=== PATIENT | female | born 1970 | race Caucasian/White ===

== ENCOUNTER → 2017-08-21 09:41 | Outpatient (CLI) | payer OTHER, SELFPAY ==
[2017-08-21 12:32] LABS: Anion Gap 8 (5-15); BUN 12 mg/dL (7-18); BUN/Creat Ratio 17.2 RATIO (10-20); Calcium,Total 8.5 mg/dL (8.5-10.1); Chloride 108 mmol/L (98-107); Cholesterol 180 mg/dL (200); EST Glomerular Filtration Rate 96 mL/min (>60); Est Glom Filt Rate - Afr Amer 117 mL/min (>60); Glucose 99 mg/dL (74-106); High Density Lipoprotein 47 mg/dL; Potassium 4.2 mmol/L (3.5-5.1); Sodium Level 140 mmol/L (136-145); Triglycerides 105 mg/dL; Very Low Density Lipoprotein 21 mg/dL (5-40)
== END ==
PROVIDERS: Family Provider Family Medicine; PCP Family Medicine; Visit Provider Family Medicine
DX: Z00.00 Encounter for general adult medical examination without abnormal findings (principal)
CPT/HCPCS: 36415; 80048; 80061

== ENCOUNTER 2018-07-24 10:17 | Emergency (ER) | payer OTHER, SELFPAY ==
[2018-07-24 10:18] VITALS: BP 128/69; PULSE 79; RESP 17; TEMP 36.7; O2SAT 100; BMI 25.2
--- NOTE | 2018-07-24 10:47 | VDLE_ITS ---
Reason For Study: PAIN RIGHT LEFT CFV is compressible, spontaneous, phasic, CFV is compressible, spontaneous, phasic, competent and demonstrates normal competent, and demonstrates normal augmentation. augmentation. Procedure FV is compressible, spontaneous, phasic, Exam performed portable in ED. competent and demonstrates normal A preliminary report was called and/or faxed augmentation. to ED. POP V is compressible, spontaneous, phasic, competent and demonstrates normal augmentation. T/P Trunk is compressible. PTV is compressible. LT PerV is compressible. Pt has had sclerotherapy on sections of the GSV. Where the GSV could be visualized is thick walled and compressible. Interpretation Summary Deep veins of the left lower extremity are patent and compressible segmentally. There is no evidence of left lower extremity deep vein thrombosis. Valvular competence appears intact within the proximal deep venous system on the left . Sections of the left great saphenous vein were not visualized, and other sections are patent and compressible, but thick-walled. Clinical correlation is advised. Ordering Physician: Nidia Pappas Referring Physician: KENDALL BRADFORD Performed By: Marie Mandel, VIDYACS, RVT
--- NOTE | 2018-07-24 10:54 | EKG12_ITS ---
Test Reason : BLOOD CLOT Blood Pressure : / mmHG Vent. Rate : 060 BPM Atrial Rate : 060 BPM P-R Int : 130 ms QRS Dur : 082 ms QT Int : 402 ms P-R-T Axes : 054 056 057 degrees QTc Int : 402 ms Normal sinus rhythm with sinus arrhythmia Normal ECG Confirmed by JEANINE FONTANEZ, ROBB ([id number]), editor managing director BROOKE FIGUEROA ([id number] on 07/26/2018 2:11:29 PM Referred By: Confirmed By:ROBB SOLORZANO MD
--- NOTE | 2018-07-24 10:54 | RAD_ITS ---
STUDY: X-RAY CHEST REASON FOR EXAM: Female, 48 years old. Chest pain. TECHNIQUE: Single AP portable view of the chest. COMPARISON: Prior comparison studies are not available for review at this time. FINDINGS: The lungs are clear and expanded. There is no demonstrated pleural abnormality. There is well-defined soft tissue density abutting the right cardiophrenic angle likely due to pericardial fat pad. Normal size heart. Normal mediastinum and brody. Normal visualized pulmonary arteries. Normal visualized aortic arch and descending thoracic aorta. Normal visualized thoracic spine. Normal visualized ribs, clavicles, and shoulders. There is no demonstrated abnormality of the visualized soft tissue structures of the upper abdomen. RAD/Chest 1 View (Portable) IMPRESSION: No active pulmonary disease. Electronically Signed: Ernesto Abrams MD at 11:40 EST Tel , Service support ,
--- NOTE | 2018-07-24 10:57 | ED.DCSUM_ITS ---
- ER Visit Summary Date of Service: 07/24/18 Chief Complaint: Left leg pain History of Present Illness: The patient is a 48 F presenting with left leg pain. Patient was seen by her primary care physician today and was sent to the ED due to concern for DVT. Patient has a history of previous DVT and factor V. She is not on anticoagulants. She has had chest pain which has been constant since yesterday. She complains of mild lightheadedness, no syncope. She denies shortness of breath. No recent travel or surgeries. She is not a smoker. No CAD risk factors. Physical Examination: Vitals are stable. Patient is afebrile. Alert no acute distress. HEENT exam is unremarkable. Neck is supple. Lungs are clear and equal bilaterally. Heart is regular rate and rhythm. Abdomen is soft nontender nondistended. Extremities left calf tenderness. No erythema or warmth. Normal distal pulses Skin is warm and dry. No focal neurologic deficit. Remainder of exam is unremarkable. Emergency Department Course and Treatment: Patient given aspirin on arrival. EKG is sinus rate of 60 with no acute ischemic changes. Chest x-ray shows no acute process. CBC, chemistries unremarkable. Troponin is negative. Ultrasound of the left lower extremity shows no evidence of DVT. CTA chest was obtained and shows no central or segmental pulmonary embolism. Hepatic cysts. 5.5 mm right middle lobe noncalcified nodule. No comparison studies are available. Left upper lobe granuloma. Delta troponin is negative. Patient is advised to follow-up with her primary care physician for these findings. Advised return to ED for worsening complaints. Disposition: Discharge home Impression: Left lower extremity pain This note was generated with [employer] dictation software. It may contain incorrect words, spelling, and punctuation that were not noted in review of the chart prior to signing ED Disposition - Plan for ED Patient: Referrals: Hugo Marx MD [Primary Care Provider] -
[2018-07-24] MEDS: Aspirin 81 MG TAB.CHEW 324 MG PO (11:06)
[2018-07-24 11:16] VITALS: O2SAT 99
[2018-07-24 11:26] LABS: Absolute Lymphocyte Count 1.34 X10^3/ul (0.83-4.51); Absolute Neutrophil Count 4.1 X10^3/uL (2.0-7.7); Basophil# 0.02 X10^3/uL; Basophil% 0.3 % (0-1); Eosinophil# 0.11 X10^3/uL; Eosinophils% 1.8 % (0-5); Hematocrit 40.3 % (37-47); Hemoglobin 13.6 g/dl (12.0-15.0); Lymphocyte # 1.34 X10^3/ul (4.0); Lymphocyte % 22.4 % (19-41); Mean Corp Hgb Conc 33.7 g/gl (32-36); Mean Corpuscular Hgb 29.5 pg (27.0-32.0); Mean Corpuscular Volume 87.4 fL (81-99); Mean Platelet Vol. 11.2 fl (6.2-12.0); Monocyte# 0.37 X10^3/uL; Monocyte% 6.2 % (0-10); Neutrophil # 4.14 X10^3/uL (2.7-7.7); Neutrophil % 69.1 % (47-70); Platelet Count 219 K/mm3 (150-450); RBC Distribution Width CV 12.9 % (11.6-14.6); RBC Distribution Width SD 40.1 fl (35.1-43.9); Red Blood Count 4.61 M/mm3 (4.2-5.4)
[2018-07-24 11:27] LABS: POSITIVE COUNT NO; POSITIVE DIFFERENTIAL NO; POSITIVE MORPHOLOGY NO
[2018-07-24 11:47] LABS: Anion Gap 5 (5-15); BUN 13 mg/dL (7-18); BUN/Creat Ratio 24.4 RATIO (10-20); Calcium,Total 9.4 mg/dL (8.5-10.1); Chloride 108 mmol/L (98-107); Creatinine, Serum 0.53 mg/dL (0.55-1.02); EST Glomerular Filtration Rate 131 mL/min (>60); Est Glom Filt Rate - Afr Amer 158 mL/min (>60); Estimated Creatinine Clearance 132.37 ml/min; Glucose 94 mg/dL (74-106); Potassium 4.1 mmol/L (3.5-5.1); Sodium Level 141 mmol/L (136-145)
[2018-07-24 12:26] VITALS: BP 115/79; PULSE 58; RESP 17; O2SAT 98
--- NOTE | 2018-07-24 13:29 | CT_ITS ---
STUDY: CTA CHEST REASON FOR EXAM: Female, 48 years old. 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 Post-processing of the angiographic images was performed, with multiplanar reformation and 3D reconstruction. Individualized dose optimization techniques were used for this CT. COMPARISON: None. FINDINGS: Normal enhancement of the main pulmonary artery and right and left pulmonary arteries. Normal enhancement of the bilateral peripheral pulmonary arteries. There is no demonstrated pulmonary embolism. Normal thoracic aorta and visualized great vessels. There is no demonstrated aortic dissection. Normal heart and pericardium. Normal mediastinum. Normal hilar regions. Normal visualized trachea and bronchi. The lungs are well expanded. Calcified granuloma left upper lobe is demonstrated. Noncalcified nodule in the right middle lobe on axial image 114 measures 5.5 mm. There is mild mosaic attenuation in the lung bases most typical of air trapping or subsegmental atelectasis. Normal pleura. Normal chest wall structures. Normal osseous structures. There are multiple simple hepatic cysts. CT/CTA Chest W/WO Contrast IMPRESSION: 1. No central or segmental pulmonary embolism. 2. Hepatic cysts. 3. 5.5 mm right middle lobe noncalcified nodule. No comparison studies are available. 4. Left upper lobe granuloma. Electronically Signed: Errol Moody MD at 14:33 EST , Service support ,
[2018-07-24 14:03] VITALS: BP 115/79; PULSE 76; RESP 14; O2SAT 99
[2018-07-24] MEDS: 0.9% Normal Saline 1,000 ML 999 ML IV (14:12)
--- NOTE | 2018-07-24 14:48 | ED.DEP ---
ED Disposition - Plan for ED Patient: Instructions: ED Muscle Pain Leg Cramps Prescriptions: Naproxen [Naprosyn] 500 mg PO BID PRN #20 tablet Referrals: Hugo Marx MD [Primary Care Provider] -
== END 2018-07-24 15:20 | disposition home or self-care (01) ==
LOC: ED 10:56
PROVIDERS: Emergency Provider Emergency Medicine; Family Provider Family Medicine; PCP Family Medicine
DX: M79.605 Pain in left leg (principal); R07.9 Chest pain, unspecified; Z79.899 Other long term (current) drug therapy; Z86.718 Personal history of other venous thrombosis and embolism
CPT/HCPCS: 71045; 71275; 80048; 84484; 85025; 93005; 93971; 96360; 99285; J7030; Q9967; A4216

== ENCOUNTER → 2018-09-22 | Outpatient (CLI) | payer OTHER, SELFPAY ==
[2018-09-22 10:40] LABS: Thyroid Stim Hormone (TSH) < 0.01 uIU/mL (0.358-3.74)
[2018-09-22 14:33] LABS: Free T3 3.8 pg/mL (2.18-3.98)
== END | disposition home or self-care (01) ==
PROVIDERS: Family Provider Family Medicine; PCP Family Medicine; Referring Provider Family Medicine; Visit Provider Nurse Practitioner Family
DX: R53.83 Other fatigue (principal)
CPT/HCPCS: 36415; 84439; 84443; 84481

== ENCOUNTER → 2018-09-24 | Outpatient (CLI) | payer OTHER, SELFPAY ==
--- NOTE | 2018-09-24 15:09 | US_ITS ---
HISTORY: HYPERTHYROIDISM EXAMINATION: US Thyroid (eg thyroid, parathyroid, parotid) TECHNIQUE: Hector scale and color doppler imaging was performed of the thyroid gland. COMPARISON: CT chest 09/23/18 FINDINGS: RIGHT THYROID LOBE: 5.5 x 1.5 x 2.0 cm. Homogeneous echotexture with normal vascularity. Nodule 1: 1.6 x 1.3 x 1.2 cm. Lower pole, complex mixed cystic and solid with peripheral vascularity. Regular margins. Nodule 2: 0.7 x 0.7 x 0.5 cm, upper pole, complex mixed cystic and solid with peripheral vascularity. Regular margins. LEFT THYROID LOBE: 5.1 x 1.5 x 1.5 cm. Homogeneous echotexture with normal vascularity. Nodule 1: 1.0 x 1.1 x 0.8 cm. Mid pole. Solid and mildly hypoechoic with internal and peripheral vascularity. Regular margins. Nodule 2: 2.1 x 1.7 x 1.4 cm. Lower pole. Isoechoic to thyroid parenchyma with peripheral and internal vascularity. Regular margins. Color than wide. Other small simple cystic appearing nodules were not measured. ISTHMUS: 0.2 cm thick. No Isthmus nodules are present. US/Thyroid IMPRESSION: Multinodular thyroid. The larger left lower pole nodule has high suspicion pattern. The small left lower pole nodule has intermediate suspicion pattern. Consider biopsy. The right-sided nodules have low suspicion pattern. at 0359 Reported and signed by: Natan Gandhi MD Electronically Signed: Natan Gandhi, at 3:58 EDT Tel , Service support ,
== END | disposition home or self-care (01) ==
LOC: US 15:04
PROVIDERS: Family Provider Family Medicine; PCP Family Medicine; Referring Provider Family Medicine; Visit Provider Family Medicine
DX: E05.90 Thyrotoxicosis, unspecified without thyrotoxic crisis or storm (principal)
CPT/HCPCS: 76536

== ENCOUNTER → 2018-10-11 | Outpatient (CLI) | payer OTHER, SELFPAY ==
--- NOTE | 2018-10-11 08:00 | NM_ITS ---
CLINICAL: 48-year-old female with reported history of thyroid nodularity. I-123 THYROID UPTAKE and SCAN COMPARISON: Thyroid ultrasound report 09/24/2018 FINDINGS: The patient was administered a 303 uCi I-123 capsule by mouth. The 4-hour I-123 radioactive iodine thyroidal uptake was calculated to be 16.5 % (normal 5 to 25 %). The 24-hour I-123 radioactive iodine thyroidal uptake was calculated to be 33.4 % (normal 5 to 40 %). The I-123 thyroid scan demonstrates increased radiopharmaceutical concentration identified in the inferior pole of the left lobe thyroid colloid. There is markedly reduced tracer distribution defined in the superior pole of the left and right superior-inferior pole thyroid parenchyma. NM/Thyroid Uptake Single or Mult IMPRESSION: 1. NORMAL 4- and 24-hour I-123 radioactive iodine thyroidal uptakes. 2. 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 Correlation with in vitro thyroid function studies is recommended if not previously obtained. Electronically Signed: Denis Garcia DO at 23:17 EDT Tel , Service support ,
== END | disposition home or self-care (01) ==
LOC: NM 07:58
PROVIDERS: Family Provider Family Medicine; PCP Family Medicine; Referring Provider Family Medicine; Visit Provider Family Medicine
DX: E03.9 Hypothyroidism, unspecified (principal)
CPT/HCPCS: 78012; A9516

== ENCOUNTER → 2019-02-02 | Outpatient (CLI) | payer OTHER, SELFPAY ==
[2019-02-02 18:08] LABS: Free T3 3.3 pg/mL (2.18-3.98); T4 Free Direct 1.07 ng/dL (0.76-1.46); Thyroid Stim Hormone (TSH) < 0.01 uIU/mL (0.358-3.74)
== END | disposition home or self-care (01) ==
LOC: MFPLAB 16:40
PROVIDERS: Family Provider Family Medicine; PCP Family Medicine; Referring Provider Family Medicine; Visit Provider Family Medicine
DX: E05.20 Thyrotoxicosis with toxic multinodular goiter without thyrotoxic crisis or storm (principal)
CPT/HCPCS: 36415; 84439; 84443; 84481

== ENCOUNTER → 2019-02-24 | Outpatient (CLI) | payer OTHER, SELFPAY ==
[2019-02-24 14:28] LABS: ALB/GLOB Ratio 1.3 RATIO (0.9-2.4); AST(SGOT) 13 U/L (15-37); Alanine Aminotransfer ALT/SGPT 20 U/L (13-56); Alkaline Phosphatase 102 U/L (45-117); Anion Gap 6 (5-15); BUN 13 mg/dL (7-18); Calcium,Total 9.1 mg/dL (8.5-10.1); Chloride 106 mmol/L (98-107); Creatinine, Serum 0.65 mg/dL (0.55-1.02); EST Glomerular Filtration Rate 103 mL/min (>60); Est Glom Filt Rate - Afr Amer 125 mL/min (>60); Free T3 2.9 pg/mL (2.18-3.98); Glucose 101 mg/dL (74-106); Sodium Level 140 mmol/L (136-145); Thyroid Stim Hormone (TSH) 0.01 uIU/mL (0.358-3.74)
== END | disposition home or self-care (01) ==
LOC: MFPLAB 11:39
PROVIDERS: Family Provider Family Medicine; PCP Family Medicine; Referring Provider Family Medicine; Visit Provider Internal Medicine Endocrinology, Diabetes & Metabolism
DX: E05.20 Thyrotoxicosis with toxic multinodular goiter without thyrotoxic crisis or storm (principal)
CPT/HCPCS: 36415; 80053; 84439; 84443; 84481

== ENCOUNTER → 2019-03-23 | Outpatient (CLI) | payer OTHER, SELFPAY ==
[2019-03-23 14:27] LABS: Free T3 2.7 pg/mL (2.18-3.98); T4 Free Direct 0.72 ng/dL (0.76-1.46); Thyroid Stim Hormone (TSH) 0.17 uIU/mL (0.358-3.74)
== END | disposition home or self-care (01) ==
LOC: MTLAB 12:26
PROVIDERS: Family Provider Family Medicine; PCP Family Medicine; Referring Provider Internal Medicine Endocrinology, Diabetes & Metabolism; Visit Provider Internal Medicine Endocrinology, Diabetes & Metabolism
DX: R94.6 Abnormal results of thyroid function studies (principal)
CPT/HCPCS: 36415; 84439; 84443; 84481

== ENCOUNTER → 2019-04-28 12:14 | Outpatient (CLI) | payer OTHER, SELFPAY ==
[2019-04-28 14:36] LABS: ALB/GLOB Ratio 1.3 RATIO (0.9-2.4); AST(SGOT) 18 U/L (15-37); Alanine Aminotransfer ALT/SGPT 26 U/L (13-56); Albumin, Serum 4.1 g/dL (3.2-5.0); Alkaline Phosphatase 90 U/L (45-117); Anion Gap 4 (5-15); BUN 14 mg/dL (7-18); BUN/Creat Ratio 19.8 RATIO (10-20); Calcium,Total 8.9 mg/dL (8.5-10.1); Chloride 106 mmol/L (98-107); Creatinine, Serum 0.71 mg/dL (0.55-1.02); EST Glomerular Filtration Rate 94 mL/min (>60); Est Glom Filt Rate - Afr Amer 114 mL/min (>60); Globulin 3.1 g/dL (2.2-4.2); Glucose 96 mg/dL (74-106); Potassium 4.2 mmol/L (3.5-5.1); Protein, Total 7.2 g/dL (6.4-8.2); Sodium Level 140 mmol/L (136-145); T4 Free Direct 0.82 ng/dL (0.76-1.46); Thyroid Stim Hormone (TSH) 0.24 uIU/mL (0.358-3.74)
== END ==
PROVIDERS: Family Provider Family Medicine; PCP Family Medicine; Referring Provider Internal Medicine Endocrinology, Diabetes & Metabolism; Visit Provider Internal Medicine Endocrinology, Diabetes & Metabolism
DX: R94.6 Abnormal results of thyroid function studies (principal)
CPT/HCPCS: 36415; 80053; 84439; 84443; 84481

== ENCOUNTER → 2019-06-13 10:24 | Outpatient (CLI) | payer OTHER, SELFPAY ==
[2019-06-13 12:26] LABS: Erythrocyte Sedimentation Rate 6 mm/hr (0-20)
[2019-06-13 13:00] LABS: Free T3 2.9 pg/mL (2.18-3.98); Magnesium 2.3 mg/dL (1.6-2.6); Rheumatoid Factor < 10.0 IU/mL (<15); T4 Free Direct 0.85 ng/dL (0.76-1.46); Vitamin D,25 Hydroxy 16.6 ng/mL (29.95-100.01)
== END ==
PROVIDERS: PCP Family Medicine; Visit Provider Internal Medicine Endocrinology, Diabetes & Metabolism
DX: E05.20 Thyrotoxicosis with toxic multinodular goiter without thyrotoxic crisis or storm (principal); E55.9 Vitamin D deficiency, unspecified; E83.42 Hypomagnesemia
CPT/HCPCS: 36415; 82306; 83735; 84439; 84443; 84481; 85652; 86431

== ENCOUNTER → 2019-08-12 | Outpatient (CLI) | payer OTHER, SELFPAY ==
[2019-08-12 17:49] LABS: Vitamin D,25 Hydroxy 41.4 ng/mL
[2019-08-12 17:56] LABS: ALB/GLOB Ratio 1.2 RATIO (0.9-2.4); AST(SGOT) 15 U/L (15-37); Alanine Aminotransfer ALT/SGPT 25 U/L (13-56); Albumin, Serum 3.8 g/dL (3.2-5.0); Alkaline Phosphatase 82 U/L (45-117); Anion Gap 7 (5-15); BUN 17 mg/dL (7-18); BUN/Creat Ratio 18.9 RATIO (10-20); Calcium,Total 8.8 mg/dL (8.5-10.1); Chloride 102 mmol/L (98-107); EST Glomerular Filtration Rate 71 mL/min (>60); Est Glom Filt Rate - Afr Amer 86 mL/min (>60); Free T3 2.8 pg/mL (2.18-3.98); Globulin 3.2 g/dL (2.2-4.2); Glucose 87 mg/dL (74-106); Potassium 4.1 mmol/L (3.5-5.1); Sodium Level 138 mmol/L (136-145); T4 Free Direct 0.85 ng/dL (0.76-1.46); Thyroid Stim Hormone (TSH) 0.31 uIU/mL (0.358-3.74)
== END | disposition home or self-care (01) ==
LOC: MTLAB 15:05
PROVIDERS: PCP Family Medicine; Referring Provider Internal Medicine Endocrinology, Diabetes & Metabolism; Visit Provider Internal Medicine Endocrinology, Diabetes & Metabolism
DX: E05.20 Thyrotoxicosis with toxic multinodular goiter without thyrotoxic crisis or storm (principal); E55.9 Vitamin D deficiency, unspecified
CPT/HCPCS: 36415; 80053; 82306; 84439; 84443; 84481

== ENCOUNTER → 2019-10-07 | Outpatient (CLI) | payer OTHER, SELFPAY ==
[2019-10-07 18:08] LABS: T4 Free Direct 0.91 ng/dL (0.76-1.46); Thyroid Stim Hormone (TSH) 0.38 uIU/mL (0.358-3.74)
== END | disposition home or self-care (01) ==
LOC: MTLAB 16:33
PROVIDERS: PCP Family Medicine; Referring Provider Internal Medicine Endocrinology, Diabetes & Metabolism; Visit Provider Internal Medicine Endocrinology, Diabetes & Metabolism
DX: E05.20 Thyrotoxicosis with toxic multinodular goiter without thyrotoxic crisis or storm (principal)
CPT/HCPCS: 36415; 84439; 84443; 84481

== ENCOUNTER → 2019-11-01 | Outpatient (CLI) | payer OTHER, SELFPAY ==
[2019-11-01 16:23] LABS: Internal QC Validated? YES +Cl - CLEAR BKGD; Pregnancy, Serum, hCG Quali. NEGATIVE Negative
== END | disposition home or self-care (01) ==
LOC: MFPLAB 09:24
PROVIDERS: PCP Family Medicine; Referring Provider Family Medicine; Visit Provider Internal Medicine Endocrinology, Diabetes & Metabolism
DX: E05.20 Thyrotoxicosis with toxic multinodular goiter without thyrotoxic crisis or storm (principal)
CPT/HCPCS: 36415; 84703

== ENCOUNTER → 2019-12-15 | Outpatient (CLI) | payer OTHER, SELFPAY ==
[2019-12-15 12:48] LABS: Free T3 2.5 pg/mL (2.18-3.98); T4 Free Direct 0.98 ng/dL (0.76-1.46); Thyroid Stim Hormone (TSH) 1.99 uIU/mL (0.358-3.74)
== END | disposition home or self-care (01) ==
LOC: MTLAB 10:24
PROVIDERS: PCP Family Medicine; Referring Provider Internal Medicine Endocrinology, Diabetes & Metabolism; Visit Provider Internal Medicine Endocrinology, Diabetes & Metabolism
DX: E05.20 Thyrotoxicosis with toxic multinodular goiter without thyrotoxic crisis or storm (principal)
CPT/HCPCS: 36415; 84439; 84443; 84481

== ENCOUNTER → 2020-01-26 | Outpatient (CLI) | payer OTHER, SELFPAY ==
[2020-01-26 15:37] LABS: Thyroid Stim Hormone (TSH) 3.92 uIU/mL (0.358-3.74)
== END | disposition home or self-care (01) ==
LOC: MTLAB 12:38
PROVIDERS: PCP Family Medicine; Referring Provider Internal Medicine Endocrinology, Diabetes & Metabolism; Visit Provider Internal Medicine Endocrinology, Diabetes & Metabolism
DX: E07.9 Disorder of thyroid, unspecified (principal)
CPT/HCPCS: 36415; 84443

== ENCOUNTER → 2020-03-09 | Outpatient (CLI) | payer OTHER, SELFPAY ==
[2020-03-09 11:03] LABS: ALB/GLOB Ratio 1.2 RATIO (0.9-2.4); AST(SGOT) 17 U/L (15-37); Alanine Aminotransfer ALT/SGPT 23 U/L (13-56); Albumin, Serum 3.8 g/dL (3.2-5.0); Alkaline Phosphatase 89 U/L (45-117); Anion Gap 5 (5-15); BUN 11 mg/dL (7-18); BUN/Creat Ratio 14.1 RATIO (10-20); Calcium,Total 8.9 mg/dL (8.5-10.1); Chloride 110 mmol/L (98-107); Creatinine, Serum 0.78 mg/dL (0.55-1.02); EST Glomerular Filtration Rate 83 mL/min (>60); Est Glom Filt Rate - Afr Amer 101 mL/min (>60); Globulin 3.3 g/dL (2.2-4.2); Glucose 95 mg/dL (74-106); Potassium 3.7 mmol/L (3.5-5.1); Protein, Total 7.1 g/dL (6.4-8.2); Sodium Level 140 mmol/L (136-145); Thyroid Stim Hormone (TSH) 1.48 uIU/mL (0.358-3.74)
== END | disposition home or self-care (01) ==
LOC: MTLAB 08:37
PROVIDERS: PCP Family Medicine; Referring Provider Internal Medicine Endocrinology, Diabetes & Metabolism; Visit Provider Internal Medicine Endocrinology, Diabetes & Metabolism
DX: E07.9 Disorder of thyroid, unspecified (principal)
CPT/HCPCS: 36415; 80053; 84443

== ENCOUNTER → 2020-07-13 10:29 | Outpatient (CLI) | payer OTHER, SELFPAY ==
[2020-07-13 17:07] LABS: ALB/GLOB Ratio 1.4 RATIO (0.9-2.4); AST(SGOT) 19 U/L (15-37); Alanine Aminotransfer ALT/SGPT 27 U/L (13-56); Albumin, Serum 4.2 g/dL (3.2-5.0); Alkaline Phosphatase 98 U/L (45-117); Anion Gap 4 (5-15); BUN 17 mg/dL (7-18); BUN/Creat Ratio 19.7 RATIO (10-20); Calcium,Total 9.4 mg/dL (8.5-10.1); Chloride 106 mmol/L (98-107); Cholesterol 256 mg/dL (200); Creatinine, Serum 0.86 mg/dL (0.55-1.02); EST Glomerular Filtration Rate 74 mL/min (>60); Est Glom Filt Rate - Afr Amer 90 mL/min (>60); Globulin 3.1 g/dL (2.2-4.2); Glucose 86 mg/dL (74-106); High Density Lipoprotein 67 mg/dL; Magnesium 2.4 mg/dL (1.6-2.6); Potassium 4.3 mmol/L (3.5-5.1); Protein, Total 7.3 g/dL (6.4-8.2); Sodium Level 140 mmol/L (136-145); Thyroid Stim Hormone (TSH) 1.76 uIU/mL (0.358-3.74); Triglycerides 122 mg/dL; Very Low Density Lipoprotein 24 mg/dL (5-40)
== END ==
PROVIDERS: PCP Family Medicine; Referring Provider Physician Assistant; Visit Provider Physician Assistant
DX: E89.0 Postprocedural hypothyroidism (principal); E78.00 Pure hypercholesterolemia, unspecified; E83.42 Hypomagnesemia
CPT/HCPCS: 36415; 80053; 80061; 83735; 84443

== ENCOUNTER → 2020-07-13 | Outpatient (CLI) | payer OTHER, SELFPAY ==
[2020-07-17 09:08] LABS: HSV 1 By PCR Positive (Negative)
[2020-07-17 15:21] LABS: HSV 2 By PCR Negative (Negative)
== END | disposition home or self-care (01) ==
LOC: LABSPEC 11:03
PROVIDERS: PCP Family Medicine; Visit Provider Obstetrics & Gynecology
DX: B00.2 Herpesviral gingivostomatitis and pharyngotonsillitis (principal)
CPT/HCPCS: 87529

== ENCOUNTER → 2020-11-12 08:23 | Outpatient (CLI) | payer OTHER, SELFPAY ==
[2020-11-12 10:31] LABS: Vitamin D,25 Hydroxy 50.4 ng/mL
[2020-11-12 11:11] LABS: ALB/GLOB Ratio 1.2 RATIO (0.9-2.4); AST(SGOT) 19 U/L (15-37); Alanine Aminotransfer ALT/SGPT 20 U/L (13-56); Albumin, Serum 3.7 g/dL (3.2-5.0); Alkaline Phosphatase 78 U/L (45-117); Anion Gap 8 (5-15); BUN 16 mg/dL (7-18); BUN/Creat Ratio 20.6 RATIO (10-20); Calcium,Total 8.5 mg/dL (8.5-10.1); Chloride 106 mmol/L (98-107); Cholesterol 202 mg/dL (200); Creatinine, Serum 0.78 mg/dL (0.55-1.02); EST Glomerular Filtration Rate 84 mL/min (>60); Est Glom Filt Rate - Afr Amer 101 mL/min (>60); Globulin 3.1 g/dL (2.2-4.2); Glucose 88 mg/dL (74-106); High Density Lipoprotein 60 mg/dL; Potassium 3.9 mmol/L (3.5-5.1); Protein, Total 6.8 g/dL (6.4-8.2); Sodium Level 141 mmol/L (136-145); Thyroid Stim Hormone (TSH) 1.78 uIU/mL (0.358-3.74); Triglycerides 58 mg/dL; Very Low Density Lipoprotein 12 mg/dL (5-40)
== END ==
PROVIDERS: PCP Family Medicine; Referring Provider Internal Medicine Endocrinology, Diabetes & Metabolism; Visit Provider Internal Medicine Endocrinology, Diabetes & Metabolism
DX: E89.0 Postprocedural hypothyroidism (principal); E78.00 Pure hypercholesterolemia, unspecified; E55.9 Vitamin D deficiency, unspecified
CPT/HCPCS: 36415; 80053; 80061; 82306; 84443

== ENCOUNTER → 2021-02-22 07:45 | Outpatient (CLI) | payer OTHER, SELFPAY ==
[2021-02-22 10:20] LABS: Vitamin D,25 Hydroxy 52.9 ng/mL
[2021-02-22 10:39] LABS: ALB/GLOB Ratio 1.1 RATIO (0.9-2.4); AST(SGOT) 15 U/L (15-37); Alanine Aminotransfer ALT/SGPT 27 U/L (13-56); Albumin, Serum 3.7 g/dL (3.2-5.0); Alkaline Phosphatase 91 U/L (45-117); Anion Gap 5 (5-15); BUN 16 mg/dL (7-18); BUN/Creat Ratio 23.9 RATIO (10-20); Calcium,Total 9.1 mg/dL (8.5-10.1); Chloride 104 mmol/L (98-107); Cholesterol 228 mg/dL (200); Creatinine, Serum 0.67 mg/dL (0.55-1.02); EST Glomerular Filtration Rate 99 mL/min (>60); Est Glom Filt Rate - Afr Amer 120 mL/min (>60); Free T3 4.3 pg/mL (2.18-3.98); Globulin 3.5 g/dL (2.2-4.2); Glucose 85 mg/dL (74-106); High Density Lipoprotein 68 mg/dL; Potassium 4.1 mmol/L (3.5-5.1); Protein, Total 7.2 g/dL (6.4-8.2); Sodium Level 140 mmol/L (136-145); Thyroid Stim Hormone (TSH) 3.53 uIU/mL (0.358-3.74); Triglycerides 85 mg/dL; Very Low Density Lipoprotein 17 mg/dL (5-40)
== END ==
PROVIDERS: PCP Family Medicine; Referring Provider Internal Medicine Endocrinology, Diabetes & Metabolism; Visit Provider Internal Medicine Endocrinology, Diabetes & Metabolism
DX: E89.0 Postprocedural hypothyroidism (principal); E78.00 Pure hypercholesterolemia, unspecified; E55.9 Vitamin D deficiency, unspecified
CPT/HCPCS: 36415; 80053; 80061; 82306; 84439; 84443; 84481

== ENCOUNTER → 2021-03-11 | Outpatient (CLI) | payer OTHER, SELFPAY ==
[2021-03-14 15:31] LABS: HPV APTIMA, High Risk Negative (Negative)
== END | disposition home or self-care (01) ==
LOC: LABSPEC 11:12
PROVIDERS: PCP Family Medicine; Visit Provider Student in an Organized Health Care Education/Training Program
DX: Z12.4 Encounter for screening for malignant neoplasm of cervix (principal)
CPT/HCPCS: 87624; 88175; G0145

== ENCOUNTER → 2021-04-01 | Outpatient (CLI) | payer OTHER, SELFPAY ==
--- NOTE | 2021-04-01 | EMB_PTH ---
PATIENT: DEMETRIA KHNA LOC: [facility] U#:[id number] AGE/SX: 50/F ROOM: RE04/01/[address]: Dr. Kelley Lei DO : 1970 BED: DIS: 04/01/2021 SPEC #: [id number] RECD: 04/01/21 11:28 STATUS: OCTAVIO REQ #: [id number] ISABELL: 04/01/21 00:[address]: Kelley Lei DEPT: SURGICAL PATHOLOGY RECD BY: Lionel Giron ENTERED: 04/01/21 13:32 SP TYPE: ENDOM BX/C SHANTELL DR: Dr. Hugo Marx MD Tissues: Endometrium, NOS Procedures: Surgery Specimen Level IV HEADER OPERATION: Endometrial biopsy PRE-OP DIAGNOSIS: Postmenopausal bleeding TISSUE SUBMITTED: Endometrial biopsy MICROSCOPIC DIAGNOSIS Endometrium, biopsy: Strips of benign superficial glandular mucosa. AM:suzanne 04/02/2021 MICROSCOPIC DESCRIPTION Slides are reviewed. GROSS DESCRIPTION Received in fixative is one container labeled with the patient's name and designated endometrial biopsy. The specimen consists of a scant amount of soft tissue. The specimen is totally submitted for cell block preparation. / suzanne 04/01/21 TC:5 CPT: 75352
== END | disposition home or self-care (01) ==
LOC: LABSPEC 11:24
PROVIDERS: PCP Family Medicine; Visit Provider Student in an Organized Health Care Education/Training Program
DX: N95.0 Postmenopausal bleeding (principal)
CPT/HCPCS: 88305

== ENCOUNTER → 2021-04-17 15:06 | Outpatient (CLI) | payer OTHER, SELFPAY ==
--- NOTE | 2021-04-17 15:08 | BI_ITS ---
MAMMOGRAPHY - BILATERAL SCREENING 3-D TOMOSYNTHESIS REASON FOR EXAM: Female, 50 years old. Routine screening PERTINENT HISTORY: No significant family history. TECHNIQUE: 2-D mammograms and 3-D Tomosynthesis of the breast (s) were performed. CAD was performed. COMPARISON: 2017 FINDINGS: The breast composition is composed of scattered fibroglandular density. Scattered benign calcifications are seen. No dense spiculated masses or suspicious microcalcifications are identified. No architectural distortion is identified. There is no skin thickening or retraction. There has been no significant change since the prior study. BI/SCRN MAMM (CAD)W/SHERWIN BILAT IMPRESSION: No mammographic signs of malignancy. Routine yearly mammograms recommended. ASSESSMENT CATEGORY: BIRADS Category 1: Negative. A letter regarding these results will be sent to the patient by the facility within 30 days. FOLLOW UP RECOMMENDATION: Yearly follow up mammogram recommended. (A) Approximately 10% of breast cancers are not detected by mammography. A normal mammogram should not delay biopsy of a clinically suspicious abnormality. Electronically Signed: Milton Man MD at 16:18 EST , Service support ,
== END ==
PROVIDERS: PCP Family Medicine; Referring Provider Student in an Organized Health Care Education/Training Program; Visit Provider Student in an Organized Health Care Education/Training Program
DX: Z12.31 Encounter for screening mammogram for malignant neoplasm of breast (principal)
CPT/HCPCS: 77063; 77067

== ENCOUNTER → 2021-04-26 07:32 | Outpatient (CLI) | payer OTHER, SELFPAY ==
[2021-04-26 10:28] LABS: Vitamin B12 753 pg/mL (211-911)
[2021-04-26 10:39] LABS: ALB/GLOB Ratio 1.1 RATIO (0.9-2.4); AST(SGOT) 17 U/L (15-37); Alanine Aminotransfer ALT/SGPT 27 U/L (13-56); Albumin, Serum 3.7 g/dL (3.2-5.0); Alkaline Phosphatase 84 U/L (45-117); Anion Gap 5 (5-15); BUN 17 mg/dL (7-18); BUN/Creat Ratio 23.8 RATIO (10-20); Chloride 106 mmol/L (98-107); Creatinine, Serum 0.71 mg/dL (0.55-1.02); EST Glomerular Filtration Rate 92 mL/min (>60); Est Glom Filt Rate - Afr Amer 111 mL/min (>60); Ferritin 115 ng/mL (8-252); Free T3 3.7 pg/mL (2.18-3.98); Globulin 3.5 g/dL (2.2-4.2); Glucose 90 mg/dL (74-106); Iron 77 ug/dL (50-170); Potassium 4.4 mmol/L (3.5-5.1); Protein, Total 7.2 g/dL (6.4-8.2); Sodium Level 141 mmol/L (136-145); T4 Free Direct 0.92 ng/dL (0.76-1.46); Thyroid Stim Hormone (TSH) 2.94 uIU/mL (0.358-3.74)
== END ==
LOC: MTLAB 07:33
PROVIDERS: PCP Family Medicine; Referring Provider Internal Medicine Endocrinology, Diabetes & Metabolism; Visit Provider Internal Medicine Endocrinology, Diabetes & Metabolism
DX: E89.0 Postprocedural hypothyroidism (principal); R53.83 Other fatigue; D51.9 Vitamin B12 deficiency anemia, unspecified
CPT/HCPCS: 36415; 80053; 82607; 82728; 83540; 84439; 84443; 84481

== ENCOUNTER → 2022-01-16 | Outpatient (CLI) | payer OTHER, SELFPAY ==
[2022-01-16 10:43] LABS: Vitamin D,25 Hydroxy 74.8 ng/mL
[2022-01-16 11:00] LABS: ALB/GLOB Ratio 1.1 RATIO (0.9-2.4); AST(SGOT) 16 U/L (15-37); Alanine Aminotransfer ALT/SGPT 26 U/L (13-56); Albumin, Serum 3.9 g/dL (3.2-5.0); Alkaline Phosphatase 82 U/L (45-117); Anion Gap 4 (5-15); BUN 18 mg/dL (7-18); BUN/Creat Ratio 21.7 RATIO (10-20); Calcium,Total 8.9 mg/dL (8.5-10.1); Chloride 105 mmol/L (98-107); Cholesterol 201 mg/dL (200); Creatinine, Serum 0.83 mg/dL (0.55-1.02); EST Glomerular Filtration Rate 77 mL/min (>60); Est Glom Filt Rate - Afr Amer 93 mL/min (>60); Free T3 4.2 pg/mL (2.18-3.98); Globulin 3.4 g/dL (2.2-4.2); Glucose 81 mg/dL (74-106); High Density Lipoprotein 63 mg/dL; Potassium 3.9 mmol/L (3.5-5.1); Protein, Total 7.3 g/dL (6.4-8.2); Sodium Level 140 mmol/L (136-145); T4 Total, Thyroxin 6.7 ug/dL (4.8-13.9); Thyroid Stim Hormone (TSH) 4.18 uIU/mL (0.358-3.74); Triglycerides 68 mg/dL; Very Low Density Lipoprotein 14 mg/dL (5-40)
== END | disposition home or self-care (01) ==
LOC: MTLAB 08:08
PROVIDERS: PCP Family Medicine; Referring Provider Internal Medicine Endocrinology, Diabetes & Metabolism; Visit Provider Internal Medicine Endocrinology, Diabetes & Metabolism
DX: E78.00 Pure hypercholesterolemia, unspecified (principal); E89.0 Postprocedural hypothyroidism; E55.9 Vitamin D deficiency, unspecified
CPT/HCPCS: 36415; 80053; 80061; 82306; 84436; 84443; 84481

== ENCOUNTER → 2022-03-10 | Outpatient (CLI) | payer OTHER, SELFPAY ==
[2022-03-10 18:35] LABS: Vitamin D,25 Hydroxy 58.6 ng/mL
[2022-03-10 18:37] LABS: ALB/GLOB Ratio 1.3 RATIO (0.9-2.4); AST(SGOT) 16 U/L (15-37); Alanine Aminotransfer ALT/SGPT 28 U/L (13-56); Albumin, Serum 3.9 g/dL (3.2-5.0); Alkaline Phosphatase 84 U/L (45-117); Anion Gap 8 (5-15); BUN 14 mg/dL (7-18); BUN/Creat Ratio 21.4 RATIO (10-20); Chloride 105 mmol/L (98-107); Creatinine, Serum 0.66 mg/dL (0.55-1.02); EST Glomerular Filtration Rate 101 mL/min (>60); Est Glom Filt Rate - Afr Amer 123 mL/min (>60); Globulin 3.1 g/dL (2.2-4.2); Glucose 96 mg/dL (74-106); Potassium 3.9 mmol/L (3.5-5.1); Sodium Level 139 mmol/L (136-145); Thyroid Stim Hormone (TSH) 5.44 uIU/mL (0.358-3.74)
== END | disposition home or self-care (01) ==
LOC: MTLAB 15:35
PROVIDERS: PCP Family Medicine; Referring Provider Internal Medicine Endocrinology, Diabetes & Metabolism; Visit Provider Internal Medicine Endocrinology, Diabetes & Metabolism
DX: E89.0 Postprocedural hypothyroidism (principal); E55.9 Vitamin D deficiency, unspecified
CPT/HCPCS: 36415; 80053; 82306; 84443

== ENCOUNTER → 2022-03-14 | Outpatient (CLI) | payer OTHER, SELFPAY ==
[2022-03-25 18:37] LABS: HPV APTIMA, High Risk Negative (Negative)
== END | disposition home or self-care (01) ==
LOC: LABSPEC 09:26
PROVIDERS: PCP Family Medicine; Visit Provider Student in an Organized Health Care Education/Training Program
DX: Z01.419 Encounter for gynecological examination (general) (routine) without abnormal findings (principal)
CPT/HCPCS: 87624; 88175; G0145

== ENCOUNTER → 2022-03-16 | Outpatient (CLI) | payer OTHER, SELFPAY ==
[2022-03-16 15:38] LABS: 24Hr.Lytes Total Volume 2800 mL; Sodium 24 HR UR 193 mmol/24h (40-220); Urine Sodium 69 mmol/L (Not Establ.)
[2022-03-16 18:25] LABS: Calcium Urine pH Range 2
[2022-03-16 18:26] LABS: 24HR UR TOTAL VOLUME 2800 ml; Urine Calcium (Random) < 5.0 (Not Estab.)
== END | disposition home or self-care (01) ==
PROVIDERS: PCP Family Medicine; Visit Provider Internal Medicine Endocrinology, Diabetes & Metabolism
DX: E89.0 Postprocedural hypothyroidism (principal); M81.0 Age-related osteoporosis without current pathological fracture
CPT/HCPCS: 81050; 82340; 82436; 82570; 84133; 84300

== ENCOUNTER → 2022-03-17 | Outpatient (CLI) | payer OTHER, SELFPAY ==
[2022-03-17 17:57] LABS: Anion Gap 7 (5-15); BUN 18 mg/dL (7-18); BUN/Creat Ratio 20.9 RATIO (10-20); Chloride 107 mmol/L (98-107); Creatinine, Serum 0.86 mg/dL (0.55-1.02); EST Glomerular Filtration Rate 74 mL/min (>60); Est Glom Filt Rate - Afr Amer 89 mL/min (>60); Glucose 96 mg/dL (74-106); Magnesium 2.2 mg/dL (1.6-2.6); Potassium 3.8 mmol/L (3.5-5.1); Sodium Level 139 mmol/L (136-145)
[2022-03-17 18:14] LABS: PTHIN 64.8 pg/mL (18.4-80.1)
[2022-03-20 15:08] LABS: PROEL- A/G Ratio 1.6 (0.7-1.7); PROEL- Albumin 3.9 g/dL (2.9-4.4); PROEL- Alpha-1 Globulin 0.2 g/dL (0.0-0.4); PROEL- Alpha-2 Globulin 0.7 g/dL (0.4-1.0); PROEL- Gamma Globulin 0.7 g/dL (0.4-1.8); PROEL- Globulin, Total 2.5 g/dL (2.2-3.9); PROEL- TOTAL PROTEIN 6.4 g/dL (6.0-8.5); PROELU- Albumin, Urine 34.3 % (.); PROELU- Alpha-1-Globulin,Ur 8.9 % (.); PROELU- Beta Globulin, Ur 21.7 % (.); PROELU- Gamma Globulin, Ur 21.1 % (.)
[2022-03-21 15:41] LABS: Total Protein, Ur < 4.0 mg/dL (Not Estab.)
== END | disposition home or self-care (01) ==
LOC: MFPLAB 15:20
PROVIDERS: PCP Family Medicine; Visit Provider Internal Medicine Endocrinology, Diabetes & Metabolism
DX: E89.0 Postprocedural hypothyroidism (principal); E21.5 Disorder of parathyroid gland, unspecified; M81.0 Age-related osteoporosis without current pathological fracture; E78.00 Pure hypercholesterolemia, unspecified
CPT/HCPCS: 36415; 80048; 83735; 83970; 84165; 84166

== ENCOUNTER → 2022-04-23 | Outpatient (CLI) | payer OTHER, SELFPAY ==
--- NOTE | 2022-04-23 16:10 | BI_ITS ---
MAMMOGRAPHY - BILATERAL SCREENING REASON FOR EXAM: Female, 51 years old. Routine annual screening examination. PERTINENT HISTORY: Non-contributory. Remote right excisional breast biopsy. TECHNIQUE: Digital bilateral breast sherwin (3D mammographic acquisition) in the CC and MLO projections. 2-D mediolateral oblique (MLO) and craniocaudad (CC) views of both breasts were obtained. CAD: Full Field Digital Mammography with Computer Added Detection was performed. COMPARISON: Comparison is made with prior study 04/17/2021 and 11/17/2016. FINDINGS: Breast Composition: The breasts are heterogeneously dense, which may obscure small masses. There are no dominant masses or suspicious calcifications. Stable small benign-appearing bilateral axillary lymph nodes. No other significant abnormalities are identified. There has been no significant change since the prior study. BI/SCRN MAMM (CAD)W/SHERWIN BILAT IMPRESSION: Stable bilateral screening mammogram. Yearly follow-up mammogram recommended. (A) ASSESSMENT CATEGORY: BIRADS Category 2: Benign. A letter regarding these results will be sent to the patient by the facility within 30 days. Approximately 10% of breast cancers are not detected by mammography. A normal mammogram should not delay biopsy of a clinically suspicious abnormality. [id number] Electronically Signed: Brennan Camacho MD at 8:44 EST ,
== END | disposition home or self-care (01) ==
LOC: OPBI 16:08
PROVIDERS: PCP Family Medicine; Visit Provider Student in an Organized Health Care Education/Training Program
DX: Z12.31 Encounter for screening mammogram for malignant neoplasm of breast (principal)
CPT/HCPCS: 77063; 77067

== ENCOUNTER 2022-04-28 11:30 | Outpatient (RCR) | payer OTHER, SELFPAY ==
--- NOTE | 2022-03-03 18:26 | HP.PTEVAL_ITS ---
Patient's Visit Information DEMETRIA KHAN is a 51 year old F referred to Physical Therapy by Dr. Nahomy Mason MD with a diagnosis of PELVIC PAIN, INTERSTITIAL CYSTITIS AND HIGH TONE PELVIC FLOOR. Date of Evaluation: 02/19/22 Physical Therapist: Cecilia Zhang PT, Cert MDT - Visit Plan Frequency: 1x/Week Duration: 8-12 WKS Plan: MANUAL PF THERAPY FOR STRENGTHENING, LENGTHENING/RELAXATION AND ENDURANCE TRAINING. INCONTINENCE EDUCATION. HEALTHY BLADDER HABBIT EDUCATION. CONSIDER INTERNAL OR EXTERNAL PF BIOFEEDBACK WITH EQUIPMENT. TRAINING IN ABDOMINAL CAVITY PRESSURE MGMT WITH ADL'S TO DECREASE ANY URINARY LEAKING. CORE STRENGTHENING AND GIOVANY HIP STRETCHING AND STRENGTHENING. 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 Disability: NO. Present symptoms: PATIENT REPORTS SHE HAS PAIN IN HER PELVIC AREA. INTERSTITIAL CYSTITIS. THE PELVIC PAIN IS CONSTANT AND NOTHING MAKES IT BETTER. INTERMITTENT LOW BACK PAIN LEFT > RIGHT RADIATING INTO LEFT LE TO FOOT. NO L LE NUMBNESS OR TINGLING. 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 LOW BACK PAIN SINCE A TEENAGER. Pain Scale: PELVIC PAIN: WORST 9/10, LEAST 5/10. Currently: 5-6/10. LOW BACK AND LEFT LE PAIN RANGES: 0-4/10 RECENTLY BUT CAN GET UP TO 10/10. Commenced as a result of: PELVIC PAIN: HSV (GENITAL HERPES). LOW BACK PAIN: HEAVY LIFTING AT A YOUNG AGE. Worse: PELVIC PAIN: STRESS. LIGHT PELVIC EXAM PALPATION INTERNALLY AND EXTERNALLY INCREASE PAIN. LBP: LIFTING. Better: PELVIC PAIN: HEATING PAD. NOTHING ELSE LBP: CHIROPRACTOR AND ALEVE. Disturbed sleep: SOMETIMES. Previous history/Previous treatment: PELVIC PAIN: CHIROPRACTOR, GABAPENTIN, PRE-CANCER REMOVED AUGUST 2021. BACK: FIRST BACK SURGERY AGE 15 - INJECTION OF SOMETHING TO SHRINK BULGING DISC 1985), 2ND BACK SURGERY 2010 - LUMBAR FUSION. REGULAR CHIROPRACTIC FOR LOW BACK AND LLE SX'S. Coughing/sneezing/straining: POSITIVE FOR LBP SOMETIMES AND SOMETIMES RARE BLADDER LEAKING. Gait: NORMAL. Bowel or Bladder Dysfunction: NO BOWEL INCONTINENCE. RARE BLADDER LEAKING WITH COUGHING AND SNEEZING OR IF IC IS FLARED UP. OCCASSIONALY SHE CAN'T QUITE MAKE IT TO THE BATHROOM. DENIES URGENCY UNLESS SHE HAS A FLARE UP OF IC. NO INCREASED PAIN WITH URINATION. PATIENT DENIES ANY OTHER BLADDER INCONTINENCE. Accidents: NO. Unexplained weight loss: NO. Imaging: NONE RECENT. PMH/Recent major surgery: HYPOTHYROIDISM. OTHER: IC FLARE UPS EVERY COUPLE MONTHS OR SO. PRETTY RANDOM. STRESS IS A BIG FACTOR. HEP: CORE EX'S AND elliptical A COUPLE TIMES A WEEK. SOME STRETCHING TOO. - Pain PELVIC Pain Intensity (Out of 10): 9 - Objective Sitting/Standing Posture: FAIR. RIGHT ILIAC CREST SLIGHTLY HIGHER THAN LEFT. MILD DECREASED LUMBAR LORDOSIS - NO RELEVENT LATERAL SHIFT. Active Correction of posture: NE. Other Observations: INDEP GAIT AND TRANSFERS. Sensory deficit: GIOVANY LE LIGHT TOUCH SENSATION GROSSLY INTACT AND SYMMETRICAL. ROM deficit: GIOVANY LE'S WFL. Motor deficit: GIOVANY LE'S GROSSLY 5/5 WITH MMT'ING. Dural Signs: NEGATIVE GIOVANY LE'S. Lumbar mvmt loss: flex - NIL. ext - MOD. R SG - MIN. L SG - MIN. Core strength: FAIR. Palpation: NO ACUTE LUMBAR, BUTTOCK OR GIOVANY GREATER TROCH REGION TENDERNESS EXTERNAL. VAGINAL INTERNAL EXAM OF PELVIC FLOOR REVEALS TENDERNESS WITH LIGHT PALPATION OF LAYERS ONE AND TWO, PF TIGHTNESS AND PELVIC FLOOR WEAKNESS. PELVIC FLOOR STRENGTH IS GRADED 2/5 WITH 3 SEC ENDURANCE X 4 REPS. TREATMENT: NEUROMUSCULAR REEDUCATION - RETRAINING OF MVMT AND POSTURE FOR SITTING, LYING AND STANDING ACTIVITIES. - Goals Goal 1:: PATIENT WILL HAVE INCREASED PELVIC FLOOR MUSCLE STRENGTH GRADE TO 5/5 Goal Time Frame: 6-8 Weeks Goal 2:: PATIENT WILL DEMONSTRATE 10 CONSISTENT AND CONSECUTIVE 10 SECOND PELVIC FLOOR MUSCLE CONTRACTIONS TO DEMONSTRATE IMPROVED PELVIC FLOOR ENDURANCE. Goal Time Frame: 8-12 Weeks Goal 3:: DECREASE C/O PELVIC FLOOR PAIN TO IMPROVE QUALITY OF LIFE. Goal Time Frame: 8-12 Weeks Goal 4:: FLUID INTAKE OF ? BODY WEIGHT IN OUNCES PER DAY WITH 2/3 BEING WATER. Goal Time Frame: 2-4 Weeks Goal 5:: VOID FREQUENCEY EVERY 3-4 HOURS Goal Time Frame: 4-6 Weeks Goal 6:: PATIENT WILL BE INDEP WITH A HEP/HOME INSTRUCTIONS FOR CONTINUED IMPROVEMENT ONCE FORMAL PHYSICAL THERAPY CONCLUDES. - Anticipated Interventions Patient/Client Instruction: Educate patient on: Condition, Plan of Care, Risk Factors For the Purpose of:: To improve self management Therapeutic Exercise to Include: Strength training, Endurance training, Postural training, Flexibilty training, Neuromotor development For the Purpose of:: To decrease pain, To increase ROM, To improve muscle performance and motor function, To increase tolerance to activity/condition /position, To improve ability of physical actions for home/community/work/leisure Manual Therapy Techniques to Include: Soft tissue mobilization For the Purpose of:: To decrease pain, To increase ROM, To improve nutrient delivery to tissue Thank you for the opportunity to evaluate your patient. For Medicare and Medicare HMO plans, please review the plan of care and approve it. It will need to be FAXED BACK to us at [phone] for Medicare purposes. For Medicare only, by signing this I certify the plan of care. Please let me know if there are questions or concerns regarding this plan of care. Physician Signature: Date:
== END 2022-04-28 19:00 | disposition home or self-care (01) ==
LOC: PT 11:30
PROVIDERS: PCP Family Medicine; Referring Provider Urology; Visit Provider Urology
DX: R10.2 Pelvic and perineal pain (principal)
CPT/HCPCS: 97140; 97162; 97530

== ENCOUNTER → 2022-05-02 | Outpatient (CLI) | payer OTHER, SELFPAY ==
[2022-05-02 10:00] VITALS: BP 134/77; PULSE 57; RESP 16; TEMP 36.2; O2SAT 99
[2022-05-02] MEDS: 0.9% NaCl Peripheral Flush Adult/Peds IV (10:12)
[2022-05-02] MEDS: 0.9% NaCl IVPB Med Flush (250 mL) 15 ML IV (10:16)
[2022-05-02] MEDS: Zoledronic Acid 5 MG 100 ML 300 MG IV (10:16)
[2022-05-02 10:56] VITALS: BP 127/72; PULSE 63; RESP 16; TEMP 36.4
== END | disposition home or self-care (01) ==
LOC: MEDOUTP 09:56
PROVIDERS: PCP Family Medicine; Referring Provider Nurse Practitioner Adult Health; Visit Provider Nurse Practitioner Adult Health
DX: M81.0 Age-related osteoporosis without current pathological fracture (principal)
CPT/HCPCS: 96365; J7050; A4216; J3489

== ENCOUNTER → 2022-09-08 | Outpatient (CLI) | payer OTHER, SELFPAY ==
[2022-09-08 18:38] LABS: Free T3 2.2 pg/mL (2.18-3.98); Thyroid Stim Hormone (TSH) 4.48 uIU/mL (0.358-3.74)
== END | disposition home or self-care (01) ==
LOC: MTLAB 16:35
PROVIDERS: PCP Family Medicine; Referring Provider Internal Medicine Endocrinology, Diabetes & Metabolism; Visit Provider Internal Medicine Endocrinology, Diabetes & Metabolism
DX: E89.0 Postprocedural hypothyroidism (principal)
CPT/HCPCS: 36415; 84439; 84443; 84481

== ENCOUNTER → 2022-10-27 | Outpatient (CLI) | payer OTHER, SELFPAY ==
[2022-10-27 18:02] LABS: Vitamin D,25 Hydroxy 43.2 ng/mL
[2022-10-27 18:15] LABS: ALB/GLOB Ratio 1.2 RATIO (0.9-2.4); AST(SGOT) 30 U/L (15-37); Alanine Aminotransfer ALT/SGPT 34 U/L (13-56); Albumin, Serum 3.8 g/dL (3.2-5.0); Alkaline Phosphatase 74 U/L (45-117); Anion Gap 1 (5-15); BUN 12 mg/dL (7-18); BUN/Creat Ratio 18.1 RATIO (10-20); Calcium,Total 9.3 mg/dL (8.5-10.1); Chloride 107 mmol/L (98-107); Creatinine, Serum 0.66 mg/dL (0.55-1.02); EST Glomerular Filtration Rate 100 mL/min (>60); Est Glom Filt Rate - Afr Amer 121 mL/min (>60); Free T3 2.5 pg/mL (2.18-3.98); Globulin 3.2 g/dL (2.2-4.2); Glucose 94 mg/dL (74-106); Potassium 3.8 mmol/L (3.5-5.1); Sodium Level 138 mmol/L (136-145); T4 Free Direct 0.82 ng/dL (0.76-1.46); Thyroid Stim Hormone (TSH) 0.79 uIU/mL (0.358-3.74)
== END | disposition home or self-care (01) ==
LOC: MTLAB 16:33
PROVIDERS: PCP Family Medicine; Referring Provider Internal Medicine Endocrinology, Diabetes & Metabolism; Visit Provider Internal Medicine Endocrinology, Diabetes & Metabolism
DX: E89.0 Postprocedural hypothyroidism (principal); E55.9 Vitamin D deficiency, unspecified
CPT/HCPCS: 36415; 80053; 82306; 84439; 84443; 84481

== ENCOUNTER → 2023-01-08 | Outpatient (CLI) | payer OTHER, SELFPAY ==
[2023-01-08 17:39] LABS: Absolute Lymphocyte Count 2.09 X10^3/uL (0.83-4.51); Basophil# 0.06 X10^3/uL; Basophil% 0.9 % (0-1); Eosinophil# 0.18 X10^3/uL; Eosinophils% 2.7 % (0-5); Hematocrit 38.5 % (37-47); Hemoglobin 12.4 g/dL (12.0-15.0); Lymphocyte # 2.09 X10^3/ul (0.83-4.51); Mean Corp Hgb Conc 32.2 g/dL (32-36); Mean Corpuscular Hgb 30.7 pg (27.0-32.0); Mean Corpuscular Volume 95.3 fL (81-99); Mean Platelet Vol. 10.6 fl (6.2-12.0); Monocyte% 5.9 % (0-10); NRBC Flagged by Analyzer 0 % (0-5); Neutrophil # 3.99 X10^3/uL (2.7-7.7); Neutrophil % 59.2 % (47-70); Platelet Count 272 K/mm3 (150-450); RBC Distribution Width SD 42.5 fl (35.1-43.9); Red Blood Count 4.04 M/mm3 (4.2-5.4); White Blood Count 6.7 K/mm3 (4.4-11.0)
[2023-01-08 18:08] LABS: AST(SGOT) 18 U/L (15-37); Alanine Aminotransfer ALT/SGPT 22 U/L (13-56); Albumin, Serum 3.7 g/dL (3.2-5.0); Alkaline Phosphatase 81 U/L (45-117); Anion Gap 4 (5-15); BUN 8 mg/dL (7-18); BUN/Creat Ratio 11.7 RATIO (10-20); Chloride 106 mmol/L (98-107); Creatinine, Serum 0.68 mg/dL (0.55-1.02); EST Glomerular Filtration Rate 96 mL/min (>60); Est Glom Filt Rate - Afr Amer 117 mL/min (>60); Globulin 3.7 g/dL (2.2-4.2); Glucose 107 mg/dL (74-106); Potassium 3.8 mmol/L (3.5-5.1); Protein, Total 7.4 g/dL (6.4-8.2); Sodium Level 139 mmol/L (136-145)
== END | disposition home or self-care (01) ==
LOC: MTLAB 16:56
PROVIDERS: PCP Family Medicine; Visit Provider Nurse Practitioner Family
DX: R10.2 Pelvic and perineal pain (principal)
CPT/HCPCS: 36415; 80053; 85025

== ENCOUNTER → 2023-03-12 | Outpatient (CLI) | payer OTHER, SELFPAY ==
[2023-03-12 15:51] LABS: Vitamin D,25 Hydroxy 45.2 ng/mL
[2023-03-12 16:19] LABS: ALB/GLOB Ratio 1.1 RATIO (0.9-2.4); AST(SGOT) 21 U/L (15-37); Alanine Aminotransfer ALT/SGPT 33 U/L (13-56); Albumin, Serum 3.8 g/dL (3.2-5.0); Alkaline Phosphatase 76 U/L (45-117); Anion Gap 6 (5-15); BUN 11 mg/dL (7-18); BUN/Creat Ratio 16.7 RATIO (10-20); Calcium,Total 9.1 mg/dL (8.5-10.1); Chloride 108 mmol/L (98-107); Creatinine, Serum 0.66 mg/dL (0.55-1.02); EST Glomerular Filtration Rate 100 mL/min (>60); Est Glom Filt Rate - Afr Amer 121 mL/min (>60); Globulin 3.6 g/dL (2.2-4.2); Glucose 89 mg/dL (74-106); Potassium 3.7 mmol/L (3.5-5.1); Protein, Total 7.4 g/dL (6.4-8.2); Sodium Level 141 mmol/L (136-145); Thyroid Stim Hormone (TSH) 0.84 uIU/mL (0.358-3.74)
== END | disposition home or self-care (01) ==
LOC: MTLAB 12:57
PROVIDERS: PCP Family Medicine; Referring Provider Internal Medicine Endocrinology, Diabetes & Metabolism; Visit Provider Internal Medicine Endocrinology, Diabetes & Metabolism
DX: E89.0 Postprocedural hypothyroidism (principal); E55.9 Vitamin D deficiency, unspecified
CPT/HCPCS: 36415; 80053; 82306; 84443

== ENCOUNTER → 2023-07-14 | Outpatient (CLI) | payer OTHER, SELFPAY ==
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
[2023-07-14 10:57] LABS: Cholesterol 237 mg/dL (200); Free T3 3.6 pg/mL (2.18-3.98); High Density Lipoprotein 57 mg/dL; T4 Free Direct 0.78 ng/dL (0.76-1.46); Thyroid Stim Hormone (TSH) 3.25 uIU/mL (0.358-3.74); Triglycerides 93 mg/dL; Very Low Density Lipoprotein 19 mg/dL (5-40)
== END | disposition home or self-care (01) ==
PROVIDERS: PCP Family Medicine; Referring Provider Family Medicine; Visit Provider Family Medicine
DX: E03.9 Hypothyroidism, unspecified (principal)
CPT/HCPCS: 36415; 80061; 84439; 84443; 84481

== ENCOUNTER → 2023-11-16 | Outpatient (CLI) | payer OTHER, SELFPAY ==
[2023-11-16 10:54] LABS: Cholesterol 204 mg/dL (200); High Density Lipoprotein 58 mg/dL; Triglycerides 70 mg/dL; Very Low Density Lipoprotein 14 mg/dL (5-40)
== END | disposition home or self-care (01) ==
LOC: MFPLAB 08:15
PROVIDERS: PCP Family Medicine; Visit Provider Family Medicine
DX: E78.00 Pure hypercholesterolemia, unspecified (principal)
CPT/HCPCS: 36415; 80061

== ENCOUNTER 2024-01-06 07:11 | Day surgery (SDC) | payer OTHER, SELFPAY ==
[2024-01-06] VITALS (8 sets, daily range): BP systolic 107–138; BP diastolic 62–92; PULSE 54–77; RESP 16; TEMP 36.8–37.1; O2SAT 96–100; BMI 30.4
--- NOTE | 2024-01-06 07:19 | PRE.ANES_ITS ---
ASA Classification* ASA Classification ASA Classification: 2 Assessment & Plan Anesthesia* Anesthesia Assessment Anesthesia Assessment: Discussed sedation and/or anesthesia options, risks, benefits, and alternatives with patient/parents/legal guardian/POA. Questions invited. The patient/parents/legal guardian/POA seems to understand and agrees to proceed with anesthesia plan. Reviewed the physical assessment, medical history, allergy history and patient home medications list prior to surgery/procedure/anesthetic and documented any changes. Performed airway and anesthesia risk assessments. Anesthesia Type Anesthesia Type: MAC Anesthesia Focused Assessment* Airway Assessment Mouth opens: >3 cm Mallampati Score: II Focused Labs Anesthesia Preop lab: CBC WBC 6.7 K/mm3 (4.4-11.0) 01/08/23 16:57 RBC 4.04 M/mm3 (4.2-5.4) L 01/08/23 16:57 Hgb 12.4 g/dL (12.0-15.0) 01/08/23 16:57 Hct 38.5 % (37-47) 01/08/23 16:57 Plt Count 272 K/mm3 (150-450) 01/08/23 16:57 CHEMISTRY Potassium 3.7 mmol/L (3.5-5.1) 03/12/23 12:57 Sodium 141 mmol/L (136-145) 03/12/23 12:57 Magnesium 2.2 mg/dL (1.6-2.6) 03/17/22 15:21 BUN 11 mg/dL (7-18) 03/12/23 12:57 Creatinine 0.66 mg/dL (0.55-1.02) 03/12/23 12:57 Glucose 89 mg/dL (74-106) 03/12/23 12:57 TSH 3.25 uIU/mL (0.358-3.74) 07/14/23 08:17 COAG Pre-Assessment Diagnosis/Proposed Procedure Planned Operative Procedure(s): COLONOSCOPY Anesthesia History 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 When Was Last Pacemaker Check QUESTION #4 FULL TEXT: You/Your Family Experience fever (hyperthermia) with Anesthesia Last Oral Intake Last Oral intake: Last Oral Intake NPO since Meds taken in AM with sips of water? 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 Has anyone observed you stop No 12/31/23 12:32 breathing during sleep? STOP Results Negative 12/31/23 12:32 QUESTION #5 FULL TEXT : Do you snore loudly (louder than talking or can be heard through closed doors)? 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 Specify any problems Hx of Preganancy in last 3 N/A 12/31/23 12:32 Months Nurse Filling Out Transfusion NBUCHER 12/31/23 12:32 & Questions: Date: 12/31/23 12/31/23 12:32 Time: 12:32 12/31/23 12:32 Patient unable to answer at this time (ie. 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: /Reproductive Hx- lobster fisherman Hx Now No 12/31/23 12:32 Gestational Age (in weeks): EDC: Hx Hx Para Hx Section SAB No 12/31/23 12:32 [facility] Medical History HSV (herpes simplex virus) infection Alcohol use Rash History of DVT (deep vein thrombosis) Non-smoker Leg cramps GERD (gastroesophageal reflux disease) Hx of cyst of breast Thyrotoxicosis, unspecified without thyrotoxic crisis or storm Factor V Leiden Interstitial cystitis Hypothyroid Hypercholesteremia Depression Migraine Anxiety Family history of colon cancer in mother Home Medications ?Medication ?Instructions ?Recorded ?Last Taken ?Type naproxen 500 mg tablet 500 mg PO BID PRN #20 tabs 07/24/18 Unknown Rx rizatriptan 10 mg tablet 10 mg PO PRN PRN Headache 07/24/18 Unknown History valacyclovir 1 gram tablet 1,000 mg PO DAILY 05/02/22 Unknown History calcium citrate 315 mg 1 tab PO DAILY 10/02/23 Unknown History calcium-vitamin D3 6.25 mcg (250 unit) tablet (Citracal + Vitamin D Maximum) duloxetine 30 mg capsule,delayed 30 mg PO QHS 10/02/23 Unknown History release (Cymbalta) ergocalciferol (vitamin D2) 1,250 1,250 mcg PO QWEEK 10/02/23 Unknown History mcg (50,000 unit) capsule (Vitamin D2) magnesium oxide 400 mg PO DAILY 10/02/23 Unknown History melatonin 5 mg tablet 5 mg PO HS PRN sleep 10/02/23 Unknown History multivitamin 1 tab PO DAILY 10/02/23 Unknown History selenium 100 mcg tablet 100 mcg PO DAILY 10/02/23 Unknown History thyroid (pork) 60 mg tablet 60 mg PO DAILY 10/02/23 Unknown History ([place] Thyroid) naltrexone 8 mg-bupropion 90 mg 2 tab PO BID 12/31/23 Unknown History tablet,extended release (Contrave) Allergy/AdvReac Type Severity Reaction Status Date / Time latex AdvReac Rash Verified 12/31/23 12:29 oxycodone (From Percocet) AdvReac Upset Verified 12/31/23 12:29 Stomach propoxyphene (From AdvReac Upset Verified 12/31/23 12:29 Darvocet-N) Stomach tramadol AdvReac Itching Verified 12/31/23 12:29 Family History Mother Colon cancer Father Non-Hodgkin lymphoma Brother CVA (cerebral vascular accident) Surgical History History of surgery Hx of tubal ligation History of bladder surgery Hx of microdiscectomy Social History current occupational status: employed Smoking Status: Never smoker alcohol intake: never substance use type: does not use Review of Systems (Anesthesia) ROS Narrative System reviewed and no additional complaints, except as documented.
--- NOTE | 2024-01-06 07:21 | H&P.OPEN ---
[facility] - General General Date of Service: 01/06/24 [facility] Narrative DEMETRIA KHAN, is a 53 F who presents for screening colonoscopy. Patient never had previous colonoscopy. Patient's mom was diagnosed with colon cancer late 60s did have a colostomy and reversal. Patient's bowel movements daily denies any blood. Patient denies any nausea/vomiting/reflux. Patient does states she has had some bilateral lower groin pain that is constant throughout the days that is due to HSV but then was told it was not that -07/04 has been getting better. [facility] Medical History (Updated 01/06/24 @ 07:[address] Sophie Medina MD) HSV (herpes simplex virus) infection Alcohol use Rash History of DVT (deep vein thrombosis) Non-smoker Leg cramps GERD (gastroesophageal reflux disease) Hx of cyst of breast Thyrotoxicosis, unspecified without thyrotoxic crisis or storm Factor V Leiden Interstitial cystitis Hypothyroid Hypercholesteremia Depression Migraine Anxiety Family history of colon cancer in mother Home Medications ?Medication ?Instructions ?Recorded ?Last Taken ?Type naproxen 500 mg tablet 500 mg PO BID PRN #20 tabs 07/24/18 Unknown Rx rizatriptan 10 mg tablet 10 mg PO PRN PRN Headache 07/24/18 Unknown History valacyclovir 1 gram tablet 1,000 mg PO DAILY 05/02/22 Unknown History calcium citrate 315 mg 1 tab PO DAILY 10/02/23 Unknown History calcium-vitamin D3 6.25 mcg (250 unit) tablet (Citracal + Vitamin D Maximum) duloxetine 30 mg capsule,delayed 30 mg PO QHS 10/02/23 Unknown History release (Cymbalta) ergocalciferol (vitamin D2) 1,250 1,250 mcg PO QWEEK 10/02/23 Unknown History mcg (50,000 unit) capsule (Vitamin D2) magnesium oxide 400 mg PO DAILY 10/02/23 Unknown History melatonin 5 mg tablet 5 mg PO HS PRN sleep 10/02/23 Unknown History multivitamin 1 tab PO DAILY 10/02/23 Unknown History selenium 100 mcg tablet 100 mcg PO DAILY 10/02/23 Unknown History thyroid (pork) 60 mg tablet 60 mg PO DAILY 10/02/23 Unknown History ([place] Thyroid) naltrexone 8 mg-bupropion 90 mg 2 tab PO BID 12/31/23 Unknown History tablet,extended release (Contrave) Allergy/AdvReac Type Severity Reaction Status Date / Time latex AdvReac Rash Verified 01/06/24 07:28 oxycodone (From Percocet) AdvReac Upset Verified 01/06/24 07:28 Stomach propoxyphene (From AdvReac Upset Verified 01/06/24 07:28 Darvocet-N) Stomach tramadol AdvReac Itching Verified 01/06/24 07:28 Family History Mother Colon cancer Father Non-Hodgkin lymphoma Brother CVA (cerebral vascular accident) Surgical History History of surgery Hx of tubal ligation History of bladder surgery Hx of microdiscectomy Social History current occupational status: employed Smoking Status: Never smoker alcohol intake: never substance use type: does not use Past Medical/Surgical History Planned Operation Planned Operative Procedure(s): COLONOSCOPY Previous Hospitalizations/Surgeries HX Hospitalizations: No Any Problems With Anesthesia: No You/Your Family Experience Fever (Hyperthermia) With Anes: No Cholinesterase deficiency: No Cardiovascular Hx of Irregular Heartbeat and/or Afib: No Hx Heart Attack: No Hx Congestive Heart Failure: No Hx Hypertension: No Hx Pacemaker: No Respiratory Hx Chronic Obstructive Pulmonary Disease (COPD): No Hx Asthma: No Hx Emphysema: No Hx Sleep Apnea: No Hx Respiratory Tract Infection/Cold (presently): No Do You Snore Loudly (louder than talking or can be heard): No Do You Often Feel Tired/ Fatigued/ Sleepy [place]ring Daytime?: No Has Anyone Observed You Stop Breathing During Sleep?: No Result (for STOP score): Negative Smoking Status: Never smoker Gastrointestinal Hx Ulcer: No Neurological Hx Seizures: No Hx Multiple Sclerosis: No Hx Parkinson's Disease: No Hx Head/Neck Injury: No Hx Headaches: Yes Hx Back Injury/Pain: Yes Does patient have nerve stimulator: No Reproduction : No Genitourinary Hx Renal Disease: No Endocrine Hx Diabetes: No Psycho/Social Hx Anxiety: No Hx Depression: No Miscellaneous Hx Cancer: No Allergies latex Adverse Reaction (Verified 01/06/24 07:28) Rash oxycodone (From Percocet) Adverse Reaction (Verified 01/06/24 07:28) Upset Stomach propoxyphene (From Darvocet-N) Adverse Reaction (Verified 01/06/24 07:28) Upset Stomach tramadol Adverse Reaction (Verified 01/06/24 07:28) Itching Discharge Is Pt Admitted From a Senior Living, or a Retirement: No Who Could Help: FRIEND After D/C, Where Do you Plan to Go: Return Home Physical Exam Const alert, oriented x3 and no apparent distress HEENT normocephalic and head/scalp atraumatic Resp normal respiratory effort Cardio regular rate GI soft to palpation and non-tender; Negative for non-distended Palpation: Negative for guarding Extremity no clubbing, cyanosis or edema Skin no rashes or lesions noted Neuro CN's II-XII intact bilaterally Psych mental status grossly normal Assessment & Plan Assessment/Plan (1) Encounter for screening for malignant neoplasm of colon: (2) Family history of colon cancer in mother: Surgery Risks - Colonoscopy I discussed with the patient the risks of the procedure: Yes Risks Include but are not Limited To: Risks include but are not limited to: Bleeding, perforation requiring further surgery, inability to complete colonoscopy requiring barium enema.
[2024-01-06] MEDS: Lactated Ringers 1,000 ML 15 ML IV (07:34)
--- NOTE | 2024-01-06 09:23 | PCM.POST.ANE ---
Anesthesia: Postop Eval I Current Vital Signs Temperature: 98.4 F Pulse Rate: 64 Blood Pressure: 107/64 Respiratory Rate: 16 Pulse Ox: 98 Oxygen Delivery Method: Room Air Assessment Airway patent: Yes Spontaneous unlabored respirations: Yes Mental status: Asleep nausea: No Vomiting: No Anesthesia Complication: No Fluid Hydration Crystalloid volume administer (ml): 500 Total IV fluid infused: 500 Progress Note Anesthesia document: Postop Eval 1 completed: Yes
--- NOTE | 2024-01-06 09:38 | PCM.POSTANE2 ---
Anesthesia Postop Eval I Sum Postop Eval Completion status Anesthesia document: Postop Eval 1 completed: Yes Anesthesia Postop Eval I Summary Anesthesia Postop Eval I Summary: Anesthesia Postop Eval I: Assessment Summary Airway patent Yes 01/06/24 09:24 [email or web address] Spontaneous unlabored Yes 01/06/24 09:24 [email or web address] respirations Mental status Asleep 01/06/24 09:24 [email or web address] nausea No 01/06/24 09:24 [email or web address] Vomiting No 01/06/24 09:24 [email or web address] Anesthesia Postop Eval I: Fluid Summary Crystalloid volume administer 500 01/06/24 09:24 [email or web address] (ml) Colloids volume administered ( ml) Blood Product volume administered (ml) Total IV fluid infused 500 01/06/24 09:24 [email or web address] Anesthesia Postop Eval I: Summary Notes Anesthesia Complication No 01/06/24 09:24 [email or web address] Anesthesia Complication Comment: Post-operative progress note Anesthesia: Postop Eval II Evaluation Mental status: Awake Pain Level: 0 nausea: No Vomiting: No
--- NOTE | 2024-01-06 10:06 | SUR.PHASEII ---
awating discharge instructions from endo
--- NOTE | 2024-01-06 10:12 | OP.CCLET_ITS ---
01/06/2024 Hugo Marx MD [address] [place] [address] Re : Colonoscopy procedure for Carolina Sousa Dear Dr. Marx This procedure was performed on Saturday, January 06, 2024. My impressions and recommendations are as follows: Impressions : - Diverticulosis in the sigmoid colon. - The examination was otherwise normal on direct and retroflexion views. - No specimens collected. Recommendations : - Discharge patient to home. - Resume previous diet. - Continue present medications. - Await pathology results. - Repeat colonoscopy in 10 years for screening purposes. My findings are described in the full procedure note, which is enclosed. If I can be of further assistance, please feel free to contact me at Doctor phone number(s): , Work: . Sincerely, MD Sophie Gil MD 01/06/2024 10:12:12 AM This report has been signed electronically.
--- NOTE | 2024-01-06 10:12 | OP.COLON_ITS ---
Patient Name: Carolina Sousa Procedure Date: 01/06/2024 8:55 AM Date of : 1970 Age: 53 Procedure: Colonoscopy Indications: Screening for colorectal malignant neoplasm Providers: Sophie Medina MD Referring MD: Hugo Marx MD Medicines: Monitored Anesthesia Care Patient Profile: This is a 53 year old female. Last Colonoscopy: none. The patient's first colonoscopy is today. Complications: No immediate complications. Procedure: Pre-Anesthesia Assessment: - Prior to the procedure, a History and Physical was performed, and patient medications and allergies were reviewed. The patient's tolerance of previous anesthesia was also reviewed. The risks and benefits of the procedure and the sedation options and risks were discussed with the patient. All questions were answered, and informed consent was obtained. Prior Anticoagulants: The patient has taken no anticoagulant or antiplatelet agents. ASA Grade Assessment: Per anesthesia. After reviewing the risks and benefits, the patient was deemed in satisfactory condition to undergo the procedure. After I obtained informed consent, the scope was passed under direct vision. Throughout the procedure, the patient's blood pressure, pulse, and oxygen saturations were monitored continuously. The Colonoscope was introduced through the anus and advanced to the cecum, identified by appendiceal orifice and ileocecal valve. The colonoscopy was performed without difficulty. The patient tolerated the procedure well. The quality of the bowel preparation was good. Scope In: 8:57:30 AM Scope Withdrawal Time 0 hours 8 minutes 21 seconds Scope Out: 9:14:19 AM Total Procedure Duration Time 0 hours 16 minutes 49 seconds Findings: The perianal and digital rectal examinations were normal. Multiple small-mouthed diverticula were found in the sigmoid colon. The exam was otherwise without abnormality on direct and retroflexion views. Impression: - Diverticulosis in the sigmoid colon. - The examination was otherwise normal on direct and retroflexion views. - No specimens collected. Recommendation: - Discharge patient to home. - Resume previous diet. - Continue present medications. - Await pathology results. - Repeat colonoscopy in 10 years for screening purposes. Procedure Code(s): --- Professional --- G0121, PT, Colorectal cancer screening; colonoscopy on individual not meeting criteria for high risk Diagnosis Code(s): --- Professional --- Z12.11, Encounter for screening for malignant neoplasm of colon K57.30, Diverticulosis of large intestine without perforation or abscess without bleeding CPT copyright 2021 [employer]. All rights reserved. The codes documented in this report are preliminary and upon sand digger review may be revised to meet current compliance requirements. MD Sophie Gil MD 01/06/2024 10:12:12 AM This report has been signed electronically. Number of Addenda: 0 Note Initiated On: 01/06/2024 8:55 AM
== END 2024-01-06 10:35 | disposition home or self-care (01) ==
LOC: EN 07:11 → AC 07:12
PROVIDERS: PCP Family Medicine; Referring Provider Family Medicine; Visit Provider Surgery
PROC: 0DJD8ZZ Inspection of Lower Intestinal Tract, Via Natural or Artificial Opening Endoscopic (ICD-10-PCS; CPT 45378; principal; 2024-01-06 08:25)
DX: Z12.11 Encounter for screening for malignant neoplasm of colon (principal); K57.30 Diverticulosis of large intestine without perforation or abscess without bleeding; E78.00 Pure hypercholesterolemia, unspecified; E03.9 Hypothyroidism, unspecified; K21.9 Gastro-esophageal reflux disease without esophagitis; Z79.899 Other long term (current) drug therapy; Z80.0 Family history of malignant neoplasm of digestive organs
CPT/HCPCS: 45378; J7120; J2405

== ENCOUNTER → 2024-08-08 | Outpatient (CLI) | payer OTHER, SELFPAY ==
[2024-08-08 14:15] LABS: ALB/GLOB Ratio 1.8 RATIO (0.9-2.4); AST(SGOT) 25 U/L (<=31); Alanine Aminotransfer ALT/SGPT 22 U/L (<=34); Albumin, Serum 4.2 g/dL (3.5-5.0); Alkaline Phosphatase 91 U/L (35-104); Anion Gap 7 (5-15); BUN 15 mg/dL (4-19); BUN/Creat Ratio 19.8 RATIO (10-20); Calcium,Total 9.1 mg/dL (7.6-11.0); Carbon Dioxide 26.3 mmol/L (21.0-32.0); Chloride 106 mmol/L (98-108); Creatinine, Serum 0.73 mg/dL (0.70-1.20); EST Glomerular Filtration Rate 98 (>60); Free T3 4.5 pg/mL (2.18-3.98); Globulin 2.4 g/dL (2.2-4.2); Glucose 95 mg/dL (70-99); Potassium 4.3 mmol/L (3.3-5.1); Protein, Total 6.6 g/dL (5.9-8.4); Sodium Level 140 mmol/L (133-145); Total Bilirubin 0.36 mg/dL (0.00-1.30)
[2024-08-08 22:25] LABS: Cholesterol 177 mg/dL (<=200); High Density Lipoprotein 63 mg/dL; Low Density Lipoprotein Calc. 100 mg/dL; Triglycerides 69 mg/dL; Very Low Density Lipoprotein 14 mg/dL (5-40); cholesterol:hdl ratio screen 2.81
== END | disposition home or self-care (01) ==
LOC: MFPLAB 10:54
PROVIDERS: PCP Family Medicine; Referring Provider Family Medicine; Visit Provider Family Medicine
DX: E78.00 Pure hypercholesterolemia, unspecified (principal); E03.9 Hypothyroidism, unspecified
CPT/HCPCS: 36415; 80053; 80061; 84439; 84443; 84481

== ENCOUNTER 2025-05-16 12:41 | Emergency (ER) | payer OTHER, SELFPAY ==
[2025-05-16 12:42] VITALS: BP 151/84; PULSE 69; RESP 18; TEMP 35.8; O2SAT 100; BMI 34.3
--- NOTE | 2025-05-16 13:24 | CT_ITS ---
PROCEDURE: ABDOMEN/PELVIS W IV CONT ONLY 05/16/2025 REASON FOR EXAM: LOWER ABDOMINAL PAIN/RECTAL PAIN. Radiating right flank pain. TECHNIQUE: Procedure Code: [id number] Modality: CT Procedure: ABDOMEN/PELVIS W IV CONT ONLY Coronal and Sagittal reconstruction series were provided. CONTRAST: Isovue-300 VOLUME: 97 mL One or more dose reduction techniques were used (e.g., Automated exposure control, adjustment of the mA and/or kV according to patient size, use of iterative reconstruction technique. RADIATION DOSE SUMMARY: CTDlvol: 13.30, 22.01 mGy DLP: 1217 mGycm COMPARISON: None. FINDINGS: LUNG BASES: No pleural effusion. Minimal atelectasis/scarring in the left lower lobe. LIVER: Multiple hypodense lesions, the largest is 8.1 cm, likely cysts. GALLBLADDER: Unremarkable. No calcified stone. BILE DUCTS: No ductal dilation. PANCREAS: Unremarkable. SPLEEN: Unremarkable. ADRENAL GLANDS: Unremarkable. KIDNEYS: Unremarkable. The kidneys enhance symmetrically. No hydronephrosis or hydroureter. STOMACH AND BOWEL: No obstruction or perforation. Periampullary 2.5 cm duodenal diverticulum. Colonic diverticulosis. Focal exophytic heterogeneous lesion adjacent to the posteroinferior wall of the mid sigmoid colon measuring 2.4 x 2.1 x 1.3 cm with surrounding fat stranding. No significant adjacent colonic wall thickening, extraluminal gas or drainable collection. APPENDIX: Normal-appearing appendix. No CT evidence for appendicitis. RETRO/PERITONEUM: No free fluid. No free air. LYMPH NODES: No lymphadenopathy. PELVIC ORGANS: Unremarkable urinary bladder and ovaries. Bilateral tubal ligation clips. Partially exophytic 1.0 cm left uterine fundus lesion, likely a fibroid. VASCULATURE: No aortic aneurysm. ABDOMINAL WALL AND SOFT TISSUES: Small fat-containing umbilical hernia. BONES: No fracture or suspicious osseous abnormality. CT/Abdomen/Pelvis W IV Cont ONLY IMPRESSION: 1. Focal exophytic inflammatory lesion along the mid sigmoid colon with surrou nding fat stranding. Considerations include epiploic appendagitis, focal complicated diverticulitis with phlegmon or less l ikely an underlying colonic neoplasm. No abscess or bowel perforation. 2. Duodenal and colonic diverticulosis. Reading Location: [id number]
[2025-05-16 13:34] LABS: Hematocrit 41.3 % (37-47); Hemoglobin 13.4 g/dL (12.0-15.0); Immature Granulocytes Count 0.030 X10^3/uL (0.0-0.0); Mean Corp Hgb Conc 32.4 g/dL (32-36); Mean Corpuscular Volume 91.6 fL (81-99); Mean Platelet Vol. 10.3 fl (6.2-12.0); NRBC Flagged by Analyzer 0 % (0-5); Platelet Count 297 K/mm3 (150-450); RBC Distribution Width CV 12.0 % (11.6-14.6); RBC Distribution Width SD 40.3 fl (35.1-43.9); Red Blood Count 4.51 M/mm3 (4.2-5.4); White Blood Count 6.5 K/mm3 (4.4-11.0)
[2025-05-16 13:50] LABS: Mucous, Urine 0 SEEN /hpf (<or=2+); Red Blood Cells-Urine 0 SEEN /hpf (0-5); Squamous Epithelial Cells - UA 0 SEEN /hpf (5-10)
[2025-05-16 13:52] LABS: Color, Urine Yellow (Yellow); Glucose, Dipstick Normal (Normal); Ketone-Dipstick Negative (Negative); Leukocyte Esterase-Dipstick Negative /ul (Negative); Nitrite-Dipstick Negative (Negative); Occult Blood-Urine Negative /ul (Negative); Protein-Dipstick Negative (Negative); Specific Gravity, Urine 1.005 (1.002-1.030); Urine Bilirubin Dipstick Negative (Negative)
[2025-05-16 14:00] VITALS: BP 145/89; PULSE 80; RESP 16; O2SAT 99
[2025-05-16 14:17] LABS: AST(SGOT) 26 U/L (<=31); Alanine Aminotransfer ALT/SGPT 26 U/L (<=34); Albumin, Serum 4.5 g/dL (3.5-5.0); Alkaline Phosphatase 94 U/L (35-104); Anion Gap 9 (7-18); BUN 10 mg/dL (4-19); BUN/Creat Ratio 13.5 RATIO (10-20); Calcium,Total 9.5 mg/dL (7.6-11.0); Carbon Dioxide 26.8 mmol/L (20.0-29.0); Chloride 103 mmol/L (96-106); Estimated Creatinine Clearance 103.00 ml/min (50-250); Globulin 2.8 g/dL (2.2-4.2); Glucose 110 mg/dL (70-99); Potassium 4.1 mmol/L (3.5-5.1)
[2025-05-16 14:56] VITALS: BP 145/89; PULSE 80; RESP 16; TEMP 36.8; O2SAT 99
--- NOTE | 2025-05-16 15:29 | ED.VIS.GI ---
HPI HPI - GI History of Present Illness Chief Complaint: Abd Pain Informant: patient Narrative Narrative: 54-year-old female presenting to the emergency room with suprapubic and rectal pain. Patient states that over the past several days she has developed a pain in the suprapubic region. Is been constant sometimes sharp but otherwise dull and aching. She states that after she has a bowel movement she developed some sharp rectal pain that does resolve. She denies any bloody stools but does note she had an episode in March. She reports a normal colonoscopy last year. There is a familial history of colon cancer in her mother. Patient denies any fevers. She denies dysuria or change in urine appearance. She denies history of colitis or diverticulitis. [facility] Medical History HSV (herpes simplex virus) infection Alcohol use Rash History of DVT (deep vein thrombosis) Non-smoker Leg cramps GERD (gastroesophageal reflux disease) Hx of cyst of breast Thyrotoxicosis, unspecified without thyrotoxic crisis or storm Factor V Leiden Interstitial cystitis Hypothyroid Hypercholesteremia Depression Migraine Anxiety Family history of colon cancer in mother Home Medications ?Medication ?Instructions ?Recorded ?Last Taken ?Type naproxen 500 mg tablet 500 mg PO BID PRN #20 tabs 07/24/18 Unknown Rx rizatriptan 10 mg tablet 10 mg PO PRN PRN Headache 07/24/18 Unknown History valacyclovir 1 gram tablet 1,000 mg PO DAILY 05/02/22 Unknown History calcium 315 mg (as 1 tab PO DAILY 10/02/23 Unknown History citrate)-vitamin D3 6.25 mcg (250 unit) tablet (Citracal + Vitamin D Maximum) duloxetine 30 mg capsule,delayed 30 mg PO QHS 10/02/23 Unknown History release (Cymbalta) ergocalciferol (vitamin D2) 1,250 1,250 mcg PO QWEEK 10/02/23 Unknown History mcg (50,000 unit) capsule (Vitamin D2) magnesium oxide 400 mg PO DAILY 10/02/23 Unknown History melatonin 5 mg tablet 5 mg PO HS PRN sleep 10/02/23 Unknown History multivitamin 1 tab PO DAILY 10/02/23 Unknown History selenium 100 mcg tablet 100 mcg PO DAILY 10/02/23 Unknown History thyroid (pork) 60 mg tablet 60 mg PO DAILY 10/02/23 Unknown History (Greene Thyroid) naltrexone 8 mg-bupropion 90 mg 2 tab PO BID 12/31/23 Unknown History tablet,extended release (Contrave) amoxicillin 875 mg-potassium 875 mg (0.875 x 875-125 mg) PO 05/16/25 Unknown Rx clavulanate 125 mg tablet Q12H #20 TABLETS hydrocodone-acetaminophen 5-325mg 1 tab PO Q6H PRN pain 3 days #12 05/16/25 Unknown Rx 5mg-325mg tabs Allergy/AdvReac Type Severity Reaction Status Date / Time latex AdvReac Rash Verified 05/16/25 12:47 oxycodone (From Percocet) AdvReac Upset Verified 05/16/25 12:47 Stomach propoxyphene (From AdvReac Upset Verified 05/16/25 12:47 Darvocet-N) Stomach tramadol AdvReac Itching Verified 05/16/25 12:47 Family History Mother Colon cancer Father Non-Hodgkin lymphoma Brother CVA (cerebral vascular accident) Surgical History History of surgery Hx of tubal ligation History of bladder surgery Hx of microdiscectomy Social History housing: house current occupational status: employed Smoking Status: Never smoker alcohol intake: never substance use type: does not use ROS ROS ED Constitutional Constitutional ED: Denies chills, fever(s) or weight loss Eyes Eyes: Denies change in vision or diplopia ENT ENT ED: Denies ear pain, rhinorrhea or sore throat Cardiovascular Cardiovascular: Denies chest pain, orthopnea, palpitations or racing heartbeat Respiratory/Chest Respiratory/Chest: Denies cough, dyspnea or orthopnea Gastrointestinal Gastrointestinal: Reports abdominal pain and other Details: Rectal pain ; Denies diarrhea, nausea or vomiting Genitourinary Genitourinary ED: Denies dysuria, hematuria or urinary frequency Musculoskeletal Musculoskeletal: Denies arthralgias, back pain or myalgias Integumentary Denies abscess or rash Neurologic Neurologic: Denies headache(s) or weakness Psychiatric Psychiatric: Denies anxiety, depression, suicidal ideation or suicidal thoughts Endocrine Endocrinology: Denies polydipsia, polyphagia or polyuria Allergic/Immunologic Allergic/Immunologic ED: Denies mouth swelling, tongue swelling or urticaria EXAM Physical Exam Const Vital Signs: 05/16/25 12:42 05/16/25 14:00 05/16/25 14:56 Temperature 96.5 F L 98.2 F Temperature Source Temporal Pulse Rate 69 80 80 Respiratory Rate 18 16 16 Blood Pressure 151/84 H 145/89 H 145/89 H Blood Pressure Mean 106 107 107 Pulse Ox 100 99 99 Oxygen Delivery Method Room Air Positive well nourished and well developed General Appearance ED: well developed HEENT Reports normocephalic, head/scalp atraumatic and moist mucous membranes Eyes PERRL and EOMs intact bilaterally Neck no lymphadenopathy, supple and no JVD Resp normal respiratory effort and clear to auscultation bilaterally Cardio regular rate, regular rhythm and no murmurs GI non-distended and no masses GI Narrative: Mild tenderness to palpation in the suprapubic region. Normal active bowel sounds no guarding no rebound Inspection: Negative for abdominal distention Palpation: soft and tender suprapubic; Negative for guarding or rebound tenderness present Back/Spine no CVA tenderness and normal ROM Extremity normal to inspection General Extremety ED: Negative for edema General Extremity: Negative for edema Neuro oriented x3 and CN's II-XII intact bilaterally Sensorium / Orientation: alert Motor Exam: strength 5/5 throughout Psych mental status grossly normal Mood & Affect: Negative for depressed or tearful Skin no rashes or lesions noted and no wounds MDM MDM MDM Narrative Medical decision making narrative: Differential diagnosis includes but not limited to cystitis diverticulitis colitis pelvic abscess rectal abscess volvulus Patient's white count is 6.5 hemoglobin 13.4. BMP with a glucose of 110 normal creatinine. Normal LFTs. Urinalysis is normal. CT of the abdomen and pelvis with IV contrast was obtained. There is a focal area of inflammation in the sigmoid colon. Exact etiology unclear. Patient will be started on Augmentin. She has an upcoming appointment next month with GI. Patient to return if she is worsening not improving or has concerns. History & Record Review Discussion w/independent historian: Patient Lab Data Attestation: I reviewed the patient's lab results. Labs: Laboratory Results - last 24 hr 05/16/25 05/16/25 12:56 13:47 WBC 6.5 RBC 4.51 Hgb 13.4 Hct 41.3 MCV 91.6 MCH 29.7 MCHC 32.4 RDW Std Deviation 40.3 RDW Coeff of Dandre 12.0 Plt Count 297 MPV 10.3 Immature Gran % (Auto) 0.500 Neut % (Auto) 60.4 Lymph % (Auto) 29.9 [place] % (Auto) 5.5 Eos % (Auto) 2.9 Baso % (Auto) 0.8 Absolute Neuts (auto) 3.9 Absolute Lymphs (auto) 1.95 Nucleated RBC % 0 Sodium 139 Potassium 4.1 Chloride 103 Carbon Dioxide 26.8 Anion Gap 9 BUN 10 Creatinine 0.74 Estim Creat Clear Calc 103.00 Est GFR (MDRD) Non-Af 96 BUN/Creatinine Ratio 13.5 Glucose 110 H Calcium 9.5 Total Bilirubin 0.43 AST 26 ALT 26 Alkaline Phosphatase 94 Total Protein 7.3 Albumin 4.5 Globulin 2.8 Albumin/Globulin Ratio 1.6 Urine Color Yellow Urine Clarity Clear Urine pH 7.0 Ur Specific [place] 1.005 Urine Protein Negative Urine Glucose (UA) Normal Urine Ketones Negative Urine Occult Blood Negative Urine Nitrite Negative Urine Bilirubin Negative Urine Urobilinogen Normal Ur Leukocyte Esterase Negative Urine RBC 0 SEEN Urine WBC 0 SEEN Ur Squamous Epith Cells 0 SEEN Urine Bacteria 0 SEEN Urine Mucus 0 SEEN Radiography Diagnostic Testing: Clinical Impression(s) from Imaging Studies Abdomen/Pelvis CT 05/16/25 13:24 IMPRESSION: 1. Focal exophytic inflammatory lesion along the mid sigmoid colon with surrounding fat stranding. Considerations include epiploic appendagitis, focal complicated diverticulitis with phlegmon or less likely an underlying colonic neoplasm. No abscess or bowel perforation. 2. Duodenal and colonic diverticulosis. Reading Location: [facility] Discharge Plan Triage Chief Complaint: Abd Pain ED Provider: Jose Sanchez Dx/Rx/DC Orders Clinical Impression: Colitis, Abdominal pain Instructions: Colitis Prescriptions: New hydrocodone-acetaminophen 5-325 mg tablet 1 tab PO Q6H PRN (Reason: pain) 3 Days Qty: 12 0RF amoxicillin-pot clavulanate 875-125 mg tablet 875 mg PO Q12H Qty: 20 0RF No Action duloxetine [Cymbalta] 30 mg capsule,delayed release(DR/EC) 30 mg PO QHS ergocalciferol (vitamin D2) [Vitamin D2] 1,250 mcg (50,000 unit) capsule 1,250 mcg PO QWEEK thyroid (pork) [Greene Thyroid] 60 mg tablet 60 mg PO DAILY multivitamin Tablet 1 tab PO DAILY calcium citrate-vitamin D3 [Citracal + D Maximum] 315 mg-6.25 mcg (250 unit) tablet 1 tab PO DAILY melatonin 5 mg tablet 5 mg PO HS PRN (Reason: sleep) magnesium oxide 400 mg magnesium tablet 400 mg PO DAILY selenium 100 mcg tablet 100 mcg PO DAILY rizatriptan 10 MG tablet 10 mg PO PRN PRN (Reason: Headache) naproxen 500 MG tablet 500 mg PO BID PRN Qty: 20 0RF valacyclovir 1 gram Tablet 1,000 mg PO DAILY Contrave 8-90 mg tablet extended release 2 tab PO BID Primary Care Provider: Hugo Marx Referrals: Hugo Marx MD [Primary Care Provider, Family Practice] - 1 Week Friend,DO David [Med Staff - Active Staff, Gastroenterology] - As soon as possible Print Language: Kittitian Disposition Disposition: Home, Self Care Discharge Date/Time: 05/16/25 15:02
== END 2025-05-16 15:02 | disposition home or self-care (01) ==
PROVIDERS: Emergency Provider Emergency Medicine; PCP Family Medicine; Visit Provider Emergency Medicine
DX: K52.9 Noninfective gastroenteritis and colitis, unspecified (principal); E78.00 Pure hypercholesterolemia, unspecified; Z86.718 Personal history of other venous thrombosis and embolism; K21.9 Gastro-esophageal reflux disease without esophagitis
CPT/HCPCS: 74177; 80053; 81001; 85025; 99283; Q9967; A4216